=== PATIENT | male | born 1945 | race Caucasian/White ===

== ENCOUNTER 2017-12-10 06:24 | Inpatient (IN) | payer BC, MEDICARE ==
[2017-12-10] MEDS ORDERED: Nitroglycerin 2% Ointment 1 INCH/1 GM Packet ONE (06:37)
[2017-12-10] MEDS ORDERED: Famotidine 20 MG TAB ONE (06:44)
[2017-12-10] MEDS ORDERED: methylPREDNISolone Sod Succ/PF 125 MG/2 ML VIAL ONE (06:44)
[2017-12-10] MEDS ORDERED: diphenhydrAMINE 50 MG/ML VIAL ONE (06:44)
[2017-12-10] MEDS ORDERED: Water For Inject, Bacteriostat 30 ML ONE (06:44)
[2017-12-10 06:45] LABS: #Basophils 0.1 thou/uL (0.0-0.2); #Eosinphils 0.5 thou/uL (0.0-0.7); #Monocytes 0.8 thou/uL (0.11-0.59); #Neutrophils 3.5 thou/uL (1.40-6.50); %Basophils 1.2 % (0.0-1.0); %Eosinophils 7.1 % (0.0-10.0); %Lymphocytes 29.5 % (21.0-51.0); %Monocytes 11.2 % (0.0-10.0); %Neutrophils 51.1 % (42.0-75.0); Hemoglobin 15.7 g/dL (14.0-18.0); Mean Corpuscular Hemoglobin 32.8 pg (27.0-31.0); Mean Corpuscular Volume 96.5 fl (80.0-94.0); Mean Platelet Volume 7.8 fL (7.4-10.4); Platelet Count 166 thou/uL (130-400); RBC Distribution Width 11.8 % (11.5-14.5); Red Blood Cell (RBC) Count 4.78 mill/uL (4.70-6.10); White Blood Cell (WBC) Count 6.8 thou/uL (4.8-10.8)
[2017-12-10 06:58] LABS: INR-International Normal Ratio 1.1; PTT 34.5 SEC (22.9-36.1); Prothrombin Time 13.9 SEC (12.0-14.7)
[2017-12-10] MEDS ORDERED: Famotidine 40 MG/4 ML VIAL SLOW IVP SCH (07:00)
[2017-12-10 07:10] LABS: ALT (SGPT) 22 U/L (8-55); AST (SGOT) 18 U/L (5-34); Alkaline Phosphatase 114 U/L (40-150); Anion Gap 13 mmol/L (10-20); BUN (Urea Nitrogen) 13 mg/dL (8.4-25.7); Bilirubin, Total 0.5 mg/dL (0.2-1.2); Calc. Creatinine Clearance 0 mL/min (70-130); Calcium 9.6 mg/dL (7.8-10.44); Carbon Dioxide 29 mmol/L (23-31); Chloride 95 mmol/L (98-107); Estimated GFR-MDRD 86; Globulin 3.6 g/dL (2.4-3.5); Glucose 113 mg/dL (80-115); Protein, Total 7.6 g/dL (5.8-8.1); Sodium 133 mmol/L (136-145)
[2017-12-10 07:14] LABS: CKMB 1.2 ng/mL (0-6.6); Troponin I Less than 0.010 ng/mL (< 0.028)
[2017-12-10] MEDS ORDERED: Acetaminophen 325 MG TAB PO PRN (09:17)
[2017-12-10] MEDS ORDERED: Ondansetron HCl/PF 4 MG/2 ML Vial IVP PRN ×2 (09:17→11:06)
[2017-12-10] MEDS ORDERED: Ondansetron ODT 4 MG TAB SL PRN (09:17)
--- NOTE | 2017-12-10 09:17 | RAD ---
CHEST 1 VIEW: Date: 12/10/17 HISTORY: 72-year-old male with history of chest pain. COMPARISON: 09/21/16. FINDINGS: Postop midline sternotomy. Left ICD. Mild stable increased markings bilaterally and blunting of the c ostophrenic angles, worse on the left side. No confluent pneumonia, overt edema, or pleural effusion. IMPRESSION: Minimal stable bilateral chronic changes. No acute intrathoracic disease. POS: EHSANH
--- NOTE | 2017-12-10 09:29 | CON ---
DATE OF CONSULTATION: 12/10/2017 REASON FOR CONSULTATION: ST-elevation myocardial infarction. CONSULTING PROVIDER: Dr. Farley. HISTORY OF PRESENT ILLNESS: Mr. Redman is a 72-year-old gentleman, who is a patient of Dr. Iva aguilar. He was last seen by Dr. Iva Lanza in 2017. He presented with acute myocardial infarction. He underwent urgent coronary angiography and was found to have an occluded right coronary artery and occluded graft to the right coronary artery. Attempts at revascularization were performed and were unsuccessful. Mr. Redman states he presented with chest pain. It awoke him from sleep. He states it lasted 30 eugenia kwadwo. He is now chest pain free. He appears comfortable. His EKG is consistent with ST-segment elev ation with Q-waves suggesting infarct. PAST MEDICAL HISTORY: As above including TN x3. PAST SURGICAL HISTORY: CABG x4 in 2003, multiple sclerosis, hyperlipidemia, hypertension. ALLERGIES: IODINE. SOCIAL HISTORY: Rare tobacco use. REVIEW OF SYSTEMS: Ten-point review of systems was reviewed and as above, otherwise negative. PHYSICAL EXAMINATION: GENERAL: Patient is a pleasant male, who is in no acute distress. The patient appears his stated ag e. VITAL SIGNS: Blood pressure 130/90, pulse 95. NEUROLOGIC: The patient is alert and oriented times 3 with no focal neurologic deficits. HEENT: Sclerae without icterus. Mouth has moist mucous membranes with normal pallor. NECK: No JVD. Carotid upstroke brisk. No bruits bilaterally. LUNGS: Clear to auscultation with unlabored respirations. BACK: No scoliosis or kyphosis. CARDIAC: Regular rate and rhythm with normal S1 and S2. No S3 or S4 noted. No significant rubs, mu rmurs, thrills, or gallops noted throughout the precordium. PMI is not displaced. There is no tadeo ternal heave. ABDOMEN: Soft, nontender, nondistended. No peritoneal signs present. No hepatosplenomegaly. No ab normal striae. EXTREMITIES: 2+ femoral and 2+ dorsalis pedis pulses. No cyanosis, clubbing, or edema. SKIN: No gross abnormalities. PERTINENT LABORATORY DATA: Hemoglobin 15.7, troponin less than 0.017, CK-MB 1.2. EKG, normal sinus rhythm with ST-segment elevation, but cannot completely exclude inferior infarct, age old, with aneur ysm. ICD interrogation suggests ventricular fibrillation event x2 with appropriate cardioversion. IMPRESSION: Acute myocardial infarction - patient is currently pain free. He has a dye allergy. Hi s symptoms are likely related to ventricular fibrillation event. I do not feel this is a primary fro m a cardiac thrombosis. We will continue to trend his troponins. Given that he is pain free and pre vious history described above in addition iodine allergy, I do not feel compelled to proceed with urg ent coronary angiography. He may benefit from long-acting amiodarone or sotalol. We will defer to Nicolasa Lanza. I did spend 35 minutes at bedside in addition to discussing the case with Dr. Travis Farley and Dr. Jn Lanza.
[2017-12-10] MEDS ORDERED: Carvedilol 6.25 MG TAB PO SCH (10:00)
[2017-12-10] MEDS ORDERED: Magnesium 2 GM/NS 0.9% 100 ML 2 GM in Premix Bag 1 BAG IVPB SCH (10:00)
[2017-12-10 10:04] LABS: Troponin I 0.158 ng/mL (< 0.028)
[2017-12-10 10:10] VITALS: BMI 31.6
[2017-12-10] MEDS ORDERED: Clopidogrel Bisulfate 300 MG TAB PO SCH (10:15)
[2017-12-10] MEDS ORDERED: Enoxaparin Sodium 40 MG/0.4 ML SYRINGE SC SCH ×2 (10:15→12:00)
[2017-12-10] MEDS ORDERED: Enoxaparin Sodium 100 MG/ML SYRINGE SC SCH (10:15)
[2017-12-10] MEDS: Aspirin 325 mg Enteric Coated Tablet PO SCH (10:25)
[2017-12-10] MEDS ORDERED: hydrALAZINE 20 MG/ML VIAL SLOW IVP PRN (11:06)
[2017-12-10] MEDS ORDERED: Acetaminophen 500 MG TAB PO PRN (11:06)
[2017-12-10] MEDS ORDERED: Amiodarone In Dextrose 200 ML IVPB SCH (11:06)
[2017-12-10] MEDS ORDERED: Ondansetron ODT 4 MG TAB PO PRN (11:06)
[2017-12-10] MEDS ORDERED: cloNIDine 0.1 MG TAB PO PRN (11:06)
[2017-12-10] MEDS ORDERED: Amiodarone HCl 150 MG, Admixture Fee 1 EACH in Dextrose 5% in Water 100 ML IVPB SCH ×3 (11:30)
[2017-12-10 12:53] LABS: Bilirubin Negative (Negative); Blood, Urine Trace (Negative); Clarity CLOUDY (Clear); Glucose, Urine (Dipstick) Negative (Negative); Leukocyte Large (Negative); Nitrite Positive (Negative); Protein, Urine (Dipstick) Negative (Neg-Trace); Specific Gravity, Urine 1.014 (1.002-1.036); Urobilinogen 0.2 mg/dL (0.2-1.0)
[2017-12-10 12:56] LABS: Bacteria/HPF 4+ HPF (None Seen); Hyaline Casts/LPF 4-6 HYALINE CAST LPF (0-3 Hyaline); Pathc Cast-AUWi Flag 0.29 (0-2.49); RBC/HPF 0-3 HPF (0-3); Squamous Epithelial None Seen HPF (0-3)
[2017-12-10] MEDS: Amiodarone HCl 450 MG, Admixture Fee 1 EACH in Dextrose 5% in Water 250 ML IVPB SCH ×3 (13:05)
[2017-12-10] MEDS ORDERED: Communication Order-Pharmacy FS SCH (13:15)
[2017-12-10 13:26] LABS: Troponin I 0.899 ng/mL (< 0.028)
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
[2017-12-10] MEDS: Carvedilol 6.25 MG TAB PO SCH (17:39)
[2017-12-10] MEDS ORDERED: predniSONE 20 MG TAB PO SCH ×2 (18:00→23:55)
[2017-12-10] MEDS: Zolpidem Tartrate 5 MG TAB PO PRN ×3 (21:22→23:40)
[2017-12-10] MEDS: Famotidine 20 MG TAB PO SCH (23:47)
[2017-12-11] MEDS: Amiodarone HCl 450 MG, Admixture Fee 1 EACH in Dextrose 5% in Water 250 ML IVPB SCH ×3 (04:20)
[2017-12-11 05:03] LABS: Anion Gap 10 mmol/L (10-20); BUN (Urea Nitrogen) 12 mg/dL (8.4-25.7); Calc. Creatinine Clearance 128 mL/min (70-130); Calcium 9.4 mg/dL (7.8-10.44); Carbon Dioxide 29 mmol/L (23-31); Chloride 95 mmol/L (98-107); Estimated GFR-MDRD 89; Glucose 145 mg/dL (80-115); Magnesium 2.2 mg/dL (1.6-2.6); Potassium 4.6 mmol/L (3.5-5.1); Sodium 129 mmol/L (136-145)
[2017-12-11 05:21] LABS: Band 2 % (5-11); Hemoglobin 14.6 g/dL (14.0-18.0); Lymphocytes 13 % (21-51); MDiff Complete? YES; Mean Corpuscular HGB CONC 33.9 g/dL (32.0-36.0); Mean Corpuscular Hemoglobin 32.9 pg (27.0-31.0); Mean Platelet Volume 8.1 fL (7.4-10.4); Monocytes 6 % (0-10); Neutrophil 79 % (42-75); Platelet Count 183 thou/uL (130-400); RBC Distribution Width 11.6 % (11.5-14.5); Red Blood Cell (RBC) Count 4.45 mill/uL (4.70-6.10); White Blood Cell (WBC) Count 13.6 thou/uL (4.8-10.8)
[2017-12-11] MEDS: Aspirin 325 mg Enteric Coated Tablet PO SCH (05:58)
[2017-12-11] MEDS: Famotidine 20 MG TAB PO SCH ×2 (05:58→20:31)
[2017-12-11] MEDS: Clopidogrel Bisulfate 75 MG TAB PO SCH (05:58)
[2017-12-11] MEDS: Carvedilol 6.25 MG TAB PO SCH ×2 (05:58→17:47)
[2017-12-11] MEDS: Sodium Chloride 0.9% 1,000 ML IV SCH ×2 (05:59→15:40)
[2017-12-11] MEDS ORDERED: Diazepam 5 MG TAB PO SCH (06:00)
[2017-12-11] MEDS ORDERED: predniSONE 20 MG TAB PO SCH (06:00)
[2017-12-11] MEDS ORDERED: Lidocaine 1% (PF) 30 ML VIAL ONE (06:23)
[2017-12-11] MEDS ORDERED: Fentanyl 100 MCG/2 ML VIAL ONE (07:38)
[2017-12-11] MEDS ORDERED: Midazolam HCl 2 mg/2 ml Vial ONE (07:38)
[2017-12-11] MEDS ORDERED: diphenhydrAMINE 50 MG/ML VIAL ONE (08:17)
[2017-12-11] MEDS ORDERED: Acetaminophen/Codeine 30-300mg Tablet PO PRN ×2 (08:30)
[2017-12-11] MEDS ORDERED: Nitroglycerin 0.4 MG TAB (25 Tab Bottle) SL PRN (08:30)
[2017-12-11] MEDS ORDERED: Sodium Chloride 0.9% 200 ML IV SCH (08:30)
[2017-12-11] MEDS ORDERED: traMADol HCl 50 MG TAB PO PRN (08:30)
[2017-12-11] MEDS ORDERED: Iopamidol 370 76% 100 ML VIAL ONE (10:42)
--- NOTE | 2017-12-11 11:13 | PDOC.PN ---
- Subjective Encounter Start Date: 12/11/17 Encounter Start Time: 11:10 Subjective: f/u for V-tach, torsades s/p ICD discharge x 2. LHC performed showing multi -: vessel CAD with patent grafts, EF 25% and med mgmt recommended. -: Asking about rehab due to deconditioning and limited mobility. - Objective Resuscitation Status: Resuscitation Status FULL:Full Resuscitation MAR Reviewed: Yes Vital Signs & Weight: Vital Signs (12 hours) Temp Pulse Resp BP BP Pulse Ox 12/11/17 08:40 80 16 133/69 133/69 12/11/17 07:00 97.6 F 84 18 161/75 H 96 12/11/17 05:58 127/62 12/11/17 04:00 97.7 F 85 20 138/68 96 12/10/17 23:20 87 138/75 Weight Admit Weight 246 lb 9.6 oz Weight 246 lb I&O: 12/10/17 12/11/17 12/12/17 06:59 06:59 06:59 Intake Total 2258 Output Total 2475 Balance -217 Result Diagrams: 12/11/17 04:40 12/11/17 04:40 Additional Labs: Microbiology 12/10/17 12:37 Urine sanders catheter Urine Culture - Preliminary Gram Negative Juan Laboratory Tests 12/10/17 12/10/17 12/10/17 06:30 06:30 06:30 WBC 6.8 Sodium 133 L Magnesium Troponin I Less than 0.010 TSH 3rd Generation 12/10/17 12/10/17 12/10/17 06:30 09:24 12:39 WBC Sodium Magnesium 2.0 Troponin I 0.158 H 0.899 H* TSH 3rd Generation 12/11/17 12/11/17 04:40 04:40 WBC Sodium Magnesium 2.2 Troponin I TSH 3rd Generation 1.0925 Radiology Reviewed by me: Yes (LHC - diffuse dz with patent grafts, EF 25%) EKG Reviewed by me: Yes (Tele - A-sensed/V-paced in 80's) Phys Exam - Physical Examination Constitutional: NAD alert, responsive HEENT: PERRLA, moist MMs, sclera anicteric, oral pharynx no lesions Neck: no nodes, no JVD, supple Respiratory: no wheezing, no rales, no rhonchi, clear to auscultation bilateral Cardiovascular: RRR, no significant murmur, no rub, gallop Gastrointestinal: soft, non-tender, no distention, positive bowel sounds Musculoskeletal: no edema, pulses present Neurological: non-focal, normal sensation, moves all 4 limbs Psychiatric: normal affect, A&O x 3 Skin: no rash, normal turgor, cap refill <2 seconds Dx/Plan (1) Ventricular tachycardia Code(s): I47.2 - VENTRICULAR TACHYCARDIA Status: Acute Comment: s/p ICD discharge x 2 with normal functioning AICD, continue Amiodarone 400mg BID (2) Elevated troponin I level Code(s): R74.8 - ABNORMAL LEVELS OF OTHER SERUM ENZYMES Status: Acute Comment: Secondary to demand ischemia, diffuse CAD by [facility] with medical mgmt recommended (3) Demand ischemia of myocardium Code(s): I24.8 - OTHER FORMS OF ACUTE ISCHEMIC HEART DISEASE Status: Acute Comment: See above, continue ASA and Plavix (4) CAD (coronary artery disease) Code(s): I25.10 - ATHSCL HEART DISEASE OF [place] CORONARY ARTERY W/O ANG PCTRS Status: Chronic Comment: Maximize medical mgmt (5) Ischemic cardiomyopathy Code(s): I25.5 - ISCHEMIC CARDIOMYOPATHY Status: Chronic Comment: EF 25% by [facility], normal functioning AICD, medical mgmt, 2D echo pending (6) HTN (hypertension) Code(s): I10 - ESSENTIAL (PRIMARY) HYPERTENSION Status: Chronic Qualifiers: Hypertension type: essential hypertension Qualified Code(s): I10 - Essential (primary) hypertension Comment: continue Coreg 12.5mg BID, resume Losartan 25mg daily (7) Multiple sclerosis Code(s): G35 - MULTIPLE SCLEROSIS Status: Chronic Comment: Continue Nuvigil , consult PT/OT, Rehab screen today (8) Neurogenic bladder Code(s): N31.9 - NEUROMUSCULAR DYSFUNCTION OF BLADDER, UNSPECIFIED Status: Chronic Comment: Intermittent self-catheterizations after removal of Sanders catheter - Plan plan discussed w/ family, PT/OT, social media coordinator, out of bed/ambulate, DVT proph w/SCDs Stable overall -: PT/OT evaluation for functional assessment -: Rehab screen due to deconditioning in context of multiple sclerosis -: Continue Amiodarone, ASA and Plavix -: AM lab: Mg++ * .
[2017-12-11] MEDS: Amiodarone 200 MG TAB PO SCH ×2 (11:24→20:31)
[2017-12-11] MEDS ORDERED: Losartan 25 MG TAB PO SCH ×2 (21:00)
[2017-12-11] MEDS: Zolpidem Tartrate 5 MG TAB PO PRN (22:18)
[2017-12-12] MEDS ORDERED: Losartan 25 MG TAB PO SCH ×2 (09:19)
[2017-12-12] MEDS: Famotidine 20 MG TAB PO SCH (09:30)
[2017-12-12] MEDS: Clopidogrel Bisulfate 75 MG TAB PO SCH (09:30)
[2017-12-12] MEDS: Carvedilol 6.25 MG TAB PO SCH (09:30)
[2017-12-12] MEDS ORDERED: Amiodarone 200 MG TAB PO SCH ×3 (09:45→21:00)
--- NOTE | 2017-12-12 10:59 | PRG ---
DATE OF SERVICE: 12/12/2017 SUBJECTIVE: Mr. Redman is doing well today. He is having no further dysrhythmia. He feels well, no chest pain or pressure. PHYSICAL EXAMINATION: VITAL SIGNS: His blood pressure is 156/78, pulse 80 its regular. LUNGS: Clear. CARDIAC: Normal S1, S2. ABDOMEN: Soft and nontender. EXTREMITIES: There is no edema. ASSESSMENT: 1. Status post episodes of ventricular fibrillation successfully defibrillated. 2. Non-ST elevation infarction related to saphenous vein graft to the right coronary artery, which i s not a candidate for intervention. 3. Hyponatremia. PLAN: 1. The losartan was increased about to 50 mg a day from 25, carvedilol 12.5 mg twice daily, Plavix 7 5 mg a day, Eliquis 5 mg twice a day for paroxysmal atrial fibrillation. 2. I asked him to come back and see us in the office in about 3 weeks. Transportation is a major pr oblem for this patient. 4. Amiodarone 200 mg twice a day for 2 weeks, then 200 mg once a day. 5. Eventually may resume diuretic in the form of furosemide, consider 20 mg 3 days a week. Sodium i s 129 on this admission.
[2017-12-12 12:09] VITALS: TEMP 97.5
[2017-12-12] MEDS: Aspirin 325 mg Enteric Coated Tablet PO SCH (12:40)
[2017-12-12] MEDS: Amiodarone 200 MG TAB PO SCH (12:40)
--- NOTE | 2017-12-12 13:55 | PQF ---
CLINICAL DOCUMENTATION IMPROVEMENT CLARIFICATION FORM: ICD-10 Updated PLEASE DO AN ADDENDUM TO THE PROGRESS NOTE WITH ANY DOCUMENTATION UPDATES OR ADDITIONS AND CARRY THROUGH TO DC SUMMARY. THANK YOU. DATE: 12/12/17 ATTN: Dr. Lehman Please exercise your independent, professional judgment in responding to the clarification form. Clinical indicators are provided on the bottom of this form for your review Please check appropriate box(s): AMI TYPE: [ x ] NSTEMI [ ] AMI Type 2 [ ] Demand ischemia of myocardium [ ] Other diagnosis [ ] Unable to determine In addition, please specify: Present on Admission (POA): [ x ] Yes [ ] No [ ] Unable to determine CLINICAL INDICATORS - SIGNS / SYMPTOMS / LABS TROPONIN I 12/10: 0.158, 0.899 PN 12/11: VENTRICULAR TACHYCARDIA DEMAND ISCHEMIA OF MYOCARIUM CARDIOLOGY PN 12/12: S/P EPISODES OF VENTRICULAR FIBRILLATION SUCCESSFULLY DEFIBRILLATED. NON-ST ELEVATION INFARCTION R/T SAPHENOUS VEIN GRAFT TO RCA, WHICH IS NOT A CANDIDATE FOR INTERVENTION. RISKS: H&P: HX OF INFERIOR ME 2/2 SV GRAFT OCCLUSION. HX OF BRADYCARDIA, REQUIRING PM INSERTION. CAD IN MULTIPLE VESSELS W/ DIFFUSE INVOLVEMENT. MS. HTN, TREATMENT: 12/11: LHC W/ GRAFTS, LV CPOE 12/10: PLAVIX 75 MG PO DAILY CPOE 12/12: ELIQUIS 5 MG PO BID Thank you, Ana Lilia (This form is maintained as a part of the permanent medical record) 2015 [employer]. All Rights Reserved Ana Lilia Gillis RN, BSN [email or web address] Office: [phone] [facility]
[2017-12-12 17:56] VITALS: BP 156/82
--- NOTE | 2017-12-13 01:02 | DIS ---
DATE OF ADMISSION: 12/10/2017 DATE OF DISCHARGE: 12/12/2017 DISCHARGE DIAGNOSES: 1. Ventricular tachycardia, status post ICD discharge x2. 2. Non-ST elevation myocardial infarction, medical management. 3. Coronary artery disease, chronic and stable. 4. Ischemic cardiomyopathy with ejection fraction of 25%. 5. Hypertension, labile. 6. Multiple sclerosis, medical management. 7. Neurogenic bladder with intermittent self-bladder catheterizations. 8. Urinary tract infection with Klebsiella and E. coli species. CONSULTATIONS: Dr. Lanza and Dr. Tapia with Cardiology Service. PERTINENT LABORATORY DATA AND X-RAY FINDINGS: Sodium ranged between 129-133. Magnesium ranged betwe en 2.0-2.3. LFTs within normal limits. Troponin I ranged between 0.010-0.90. TSH 1.09. CBC showed a white blood cell count ranging between 6.8-13.6. Urine culture dated 12/10/2017 showed greater th an 100,000 colonies of E. coli and Klebsiella species. Portable chest x-ray dated 12/10/2017 showed stable chronic changes without acute process. Left heart catheterization dated 12/11/2017 showed mul tivessel coronary artery disease with patent SEARS to mid LAD, patent saphenous vein graft to distal L AD, patent radial to high diagonal. RCA 100% occlusion with patent saphenous vein graft with diffuse thrombus. Ejection fraction estimated 25%. A 2D transthoracic echocardiogram dated 12/11/2017 show ed ejection fraction of 25%-30%. Diastolic dysfunction noted. Left atrial enlargement. Mild-to-mod erate tricuspid regurgitation. HOSPITAL COURSE: Patient was initially admitted after presenting with left arm, jaw, and chest pain in the context of known multivessel coronary artery disease. Patient was noted with ventricular tach ycardia/ventricular fibrillation/torsades nonsustained. Patient with current ICD implant undergoing discharges x2 prior to admission. Patient was initially placed on amiodarone infusion and received m agnesium sulfate IV x1 dose. Patient was evaluated by the Cardiology service undergoing left heart c atheterization showing patent grafts as noted previously with multi-vessel coronary disease. No spec ific intervention was recommended and medical management was instituted. Patient was initiated on am iodarone 200 mg b.i.d. Patient did receive Lovenox 100 mg subcutaneously after evidence of non-ST el evation myocardial infarction with elevated troponin I stated previously. Patient was also titrated on current regimen of losartan and increased on Coreg to 12.5 mg b.i.d. Telemetry monitoring showed no recurrence of ventricular tachycardia or torsades after initial management. Patient was also note d with likely urinary tract infection after urine culture showed E. coli and Klebsiella species in th e context of neurogenic bladder and intermittent bladder self-catheterizations. Patient initiated on Levaquin 500 mg daily to complete a 5-day course after discharge. Patient was also recommended to jennifer nieto outpatient physical therapy through home health services on discharge. Overall, patient did remain clinically stable, tolerating regular oral intake with current telemetry monitoring showing at rial paced V-sensed rhythm in the 80s. I have examined the patient at the time of discharge and disc ussed pertinent laboratory, x-ray, and cardiac studies as well as recommendations for outpatient foll owup. Patient verbalizes understanding and agreement and will discharge home on 12/12/2017. DISCHARGE MEDICATIONS: 1. Amiodarone 200 mg 1 tab p.o. b.i.d. x2 weeks followed by 200 mg p.o. daily. 2. Losartan 50 mg p.o. at bedtime. 3. Coreg 12.5 mg p.o. b.i.d. 4. Xanax 0.25 mg p.o. q.i.d. p.r.n. 5. Eliquis 5 mg p.o. b.i.d. 6. Nuvigil 150 mg p.o. daily. 7. Lipitor 20 mg p.o. at bedtime. 8. Vitamin B complex 1 capsule p.o. daily. 9. Calcium with vitamin D3 two tablets p.o. at bedtime. 10. Plavix 75 mg p.o. b.i.d. 11. Proscar 5 mg p.o. at bedtime. 12. Gabapentin 600 mg p.o. at bedtime. 13. Hydrochlorothiazide 25 mg p.o. daily. 14. Levaquin 500 mg p.o. daily x5 days. 15. Levothyroxine 25 mcg 1 tab p.o. daily. 16. Melatonin 10 mg p.o. at bedtime. 17. Multivitamin 1 tab p.o. daily. 18. Slow-K 8 mEq p.o. daily. 19. Flomax 0.4 mg p.o. at bedtime. 20. Ambien 2.25 mg p.o. at bedtime. FOLLOWUP: Patient to follow up with Dr. Zeyad Garvin at [facility] within 7 d ays of discharge. Patient will follow up with Dr. Lanza and to call his office for appointment time and date. CONDITION ON DISCHARGE: Stable. ACTIVITY: Ad-magaly. DIET: Heart healthy. SPECIAL INSTRUCTIONS: Patient will receive home health services through [facility] skilled care and physical therapy. CODE STATUS: FULL. DISPOSITION: Home, [facility] on 12/12/2017. Total time preparing and coordinating discharge 37 minutes.
[2017-12-14] MEDS ORDERED: Apixaban 5 MG TAB PO SCH (09:00)
== END 2017-12-12 17:56 | disposition home health service (06) | DRG 280 ==
LOC: ERS 06:24 → 2NO 08:23
PROVIDERS: ADMIT Family Medicine; ATTEND Family Medicine
PROC: 4A023N7 Measurement of Cardiac Sampling and Pressure, Left Heart, Percutaneous Approach (ICD-10-PCS; principal; 2017-12-11)
PROC: B2111ZZ Fluoroscopy of Multiple Coronary Arteries using Low Osmolar Contrast (ICD-10-PCS; 2017-12-11)
PROC: B2131ZZ Fluoroscopy of Multiple Coronary Artery Bypass Grafts using Low Osmolar Contrast (ICD-10-PCS; 2017-12-11)
PROC: B2181ZZ Fluoroscopy of Left Internal Mammary Bypass Graft using Low Osmolar Contrast (ICD-10-PCS; 2017-12-11)
PROC: B2151ZZ Fluoroscopy of Left Heart using Low Osmolar Contrast (ICD-10-PCS; 2017-12-11)
DX: I21.4 Non-ST elevation (NSTEMI) myocardial infarction (principal); I49.01 Ventricular fibrillation; E87.1 Hypo-osmolality and hyponatremia; I47.2 Ventricular tachycardia; N39.0 Urinary tract infection, site not specified; T83.518A Infection and inflammatory reaction due to other urinary catheter, initial encounter; I25.810 Atherosclerosis of coronary artery bypass graft(s) without angina pectoris; G35 Multiple sclerosis; Z95.810 Presence of automatic (implantable) cardiac defibrillator; Z91.138 Patient's unintentional underdosing of medication regimen for other reason; T45.516A Underdosing of anticoagulants, initial encounter; Z79.02 Long term (current) use of antithrombotics/antiplatelets; I25.10 Atherosclerotic heart disease of native coronary artery without angina pectoris; I25.5 Ischemic cardiomyopathy; N31.9 Neuromuscular dysfunction of bladder, unspecified; B96.20 Unspecified Escherichia coli [E. coli] as the cause of diseases classified elsewhere; B96.1 Klebsiella pneumoniae [K. pneumoniae] as the cause of diseases classified elsewhere; Z91.041 Radiographic dye allergy status; E78.5 Hyperlipidemia, unspecified; I25.82 Chronic total occlusion of coronary artery; I25.2 Old myocardial infarction; I10 Essential (primary) hypertension
CPT/HCPCS: 36415; 71045; 76942; 80048; 80053; 81003; 81015; 82553; 83735; 84443; 84484; 85007; 85025; 85027; 85610; 85730; 87077; 87086; 87186; 93005; 93306; 93459; 94760; 96365; 96366; 96375; 99152; 99153; 99292; A4216; C1769; G8978-GP-CL; G8979-GP-CI; G8987-GO-CK; G8988-GO-CJ; J0282; J1200; J1644; J1650; J2001; J2250; J2930; J3010; J3475; J7070; J7506

== ENCOUNTER 2018-04-18 09:32 | Emergency (ER) | payer BC, MEDICARE ==
[2018-04-18 10:59] LABS: ALT (SGPT) 18 U/L (8-55); AST (SGOT) 18 U/L (5-34); Albumin 3.5 g/dL (3.4-4.8); Alkaline Phosphatase 102 U/L (40-150); Anion Gap 12 mmol/L (10-20); BUN (Urea Nitrogen) 12 mg/dL (8.4-25.7); Bilirubin, Total 0.6 mg/dL (0.2-1.2); CK (CPK) 31 U/L (30-200); Calc. Creatinine Clearance 0 mL/min (70-130); Carbon Dioxide 27 mmol/L (23-31); Chloride 98 mmol/L (98-107); Estimated GFR-MDRD 73; Globulin 3.6 g/dL (2.4-3.5); Glucose 117 mg/dL (80-115); Potassium 4.2 mmol/L (3.5-5.1); Protein, Total 7.1 g/dL (5.8-8.1); Sodium 133 mmol/L (136-145)
[2018-04-18 11:01] LABS: Hemoglobin 15.4 g/dL (14.0-18.0); Mean Corpuscular Hemoglobin 31.9 pg (27.0-31.0); Mean Corpuscular Volume 96.6 fL (78.0-98.0); Mean Platelet Volume 7.6 fL (7.4-10.4); Platelet Count 193 thou/uL (130-400); RBC Distribution Width 12.2 % (11.5-14.5); Red Blood Cell (RBC) Count 4.84 mill/uL (4.70-6.10); White Blood Cell (WBC) Count 8.9 thou/uL (4.8-10.8)
[2018-04-18 11:14] LABS: CKMB 0.6 ng/mL (0-6.6); Troponin I Less than 0.010 ng/mL (< 0.028)
[2018-04-18 11:19] LABS: Band 5 % (5-11); Eosinophils 10 % (0-10); Lymphocytes 20 % (21-51); MDiff Complete? YES; Monocytes 5 % (0-10); Neutrophil 59 % (42-75); RBC Morphology Normal; Reactive Lymphocytes 1 % (0-10)
[2018-04-18] MEDS ORDERED: Nystatin Cream 30 GM TUBE TOP SCH (12:00)
[2018-04-18 12:01] LABS: Bilirubin Negative (Negative); Blood, Urine Trace (Negative); Clarity CLEAR (Clear); Glucose, Urine (Dipstick) Negative (Negative); Leukocyte Trace (Negative); Nitrite Positive (Negative); Protein, Urine (Dipstick) Negative (Neg-Trace); Specific Gravity, Urine 1.009 (1.002-1.036); Urobilinogen 0.2 mg/dL (0.2-1.0)
[2018-04-18 12:05] LABS: Bacteria/HPF 2+ HPF (None Seen); Hyaline Casts/LPF 0-3 HYALINE CAST LPF (0-3 Hyaline); Pathc Cast-AUWi Flag 0.29 (0-2.49); RBC/HPF 0-3 HPF (0-3); Squamous Epithelial 0-3 HPF (0-3); WBC/HPF 0-3 HPF (0-3)
== END 2018-04-18 15:11 | disposition home or self-care (01) ==
LOC: ERS 09:32
DX: L03.312 Cellulitis of back [any part except buttock and flank] (principal); I25.2 Old myocardial infarction; I10 Essential (primary) hypertension; Z79.899 Other long term (current) drug therapy; Z79.891 Long term (current) use of opiate analgesic
CPT/HCPCS: 36415; 51701; 80053; 81003; 81015; 82550; 82553; 83605; 84484; 85025; 87040; 87077; 87086; 87186; 93005

== ENCOUNTER 2018-09-12 09:27 | Emergency (ER) | payer BC, MEDICARE ==
[2018-09-12] MEDS ORDERED: Albuterol Sulfate 2.5 mg/0.5 ml Neb ONE ×2 (09:51)
[2018-09-12 10:03] LABS: #Basophils 0.1 thou/uL (0.0-0.2); #Eosinphils 0.4 thou/uL (0.0-0.7); #Lymphocytes 1.4 thou/uL (1.20-3.40); #Monocytes 0.8 thou/uL (0.11-0.59); #Neutrophils 3.5 thou/uL (1.40-6.50); %Basophils 0.9 % (0.0-1.0); %Lymphocytes 22.5 % (21.0-51.0); %Monocytes 13.2 % (0.0-10.0); %Neutrophils 56.4 % (42.0-75.0); Mean Corpuscular HGB CONC 32.5 g/dL (32.0-36.0); Mean Corpuscular Volume 98.6 fL (78.0-98.0); Mean Platelet Volume 9.1 fL (7.4-10.4); Platelet Count 172 thou/uL (130-400); RBC Distribution Width 12.2 % (11.5-14.5); White Blood Cell (WBC) Count 6.2 thou/uL (4.8-10.8)
[2018-09-12 10:25] LABS: ALT (SGPT) 47 U/L (8-55); AST (SGOT) 40 U/L (5-34); Albumin 3.9 g/dL (3.4-4.8); Alkaline Phosphatase 98 U/L (40-150); Anion Gap 14 mmol/L (10-20); BUN (Urea Nitrogen) 9 mg/dL (8.4-25.7); Bilirubin, Total 0.6 mg/dL (0.2-1.2); Calc. Creatinine Clearance 0 mL/min (70-130); Calcium 9.2 mg/dL (7.8-10.44); Carbon Dioxide 26 mmol/L (23-31); Chloride 94 mmol/L (98-107); Estimated GFR-MDRD 83; Globulin 3.7 g/dL (2.4-3.5); Glucose 119 mg/dL (83-110); Potassium 4.7 mmol/L (3.5-5.1); Protein, Total 7.6 g/dL (5.8-8.1); Sodium 129 mmol/L (136-145)
--- NOTE | 2018-09-12 10:38 | RAD ---
CHEST 1 VIEW: Date: 09/12/18 HISTORY: Dyspnea. Shortness of breath which started yesterday morning. Dizziness. Coughing. COMPARISON: 12/10/17. FINDINGS: Postop midline sternotomy and left ICD. Minimal stable increased pleural and parenchymal opacity jansen ges in the left base with blunting of the left costophrenic angle. Mild biapical pleural thickening. No confluent pneumonia, overt edema, or pleural effusion. IMPRESSION: No acute intrathoracic disease. Stable from prior study. No overt pneumonia or edema. POS: TPC
== END 2018-09-12 12:05 | disposition home or self-care (01) ==
LOC: ERS 09:27
DX: J45.909 Unspecified asthma, uncomplicated (principal); E87.1 Hypo-osmolality and hyponatremia; I25.2 Old myocardial infarction; I10 Essential (primary) hypertension; Z79.899 Other long term (current) drug therapy
CPT/HCPCS: 71045; 80053; 84484; 85025; 87804; 93005; 94640; J7611

== ENCOUNTER 2019-08-15 07:32 | Inpatient (IN) | payer BC, MEDICARE ==
--- NOTE | 2019-08-15 08:08 | RAD ---
EXAM: XR Chest 1 View Portable PROVIDED CLINICAL HISTORY: Dyspnea COMPARISON: 09/12/2018 FINDINGS: Cardiac and mediastinal silhouettes is unchanged in appearance. Left subclavian cardiac pacing device and median sternotomy changes are again seen. Stable blunting of the left costophrenic angle. Patchy right lower lung zone airspace disease. No evidence for pneumothorax. IMPRESSION: Patchy right lower lung zone airspace disease may reflect pneumonia in the appropriate clinical augustine xt. Follow-up is recommended.
[2019-08-15] MEDS ORDERED: Cefepime 2 GM VIAL ONE (08:13)
[2019-08-15 08:17] LABS: #Eosinphils 0.2 thou/uL (0.0-0.7); #Monocytes 0.7 thou/uL (0.11-0.59); #Neutrophils 4.3 thou/uL (1.40-6.50); %Basophils 0.8 % (0.0-1.0); %Lymphocytes 16.1 % (21.0-51.0); %Monocytes 11.1 % (0.0-10.0); Hemoglobin 14.7 g/dL (14.0-18.0); Mean Corpuscular HGB CONC 33.4 g/dL (32.0-36.0); Mean Corpuscular Hemoglobin 33.1 pg (27.0-31.0); Mean Corpuscular Volume 98.9 fL (78.0-98.0); Mean Platelet Volume 8.8 fL (7.4-10.4); Platelet Count 120 thou/uL (130-400); Red Blood Cell (RBC) Count 4.44 mill/uL (4.70-6.10); White Blood Cell (WBC) Count 6.2 thou/uL (4.8-10.8)
[2019-08-15 08:36] LABS: ALT (SGPT) 20 U/L (8-55); AST (SGOT) 21 U/L (5-34); Albumin 3.7 g/dL (3.4-4.8); Alkaline Phosphatase 105 U/L (40-110); Anion Gap 16 mmol/L (10-20); BUN (Urea Nitrogen) 6 mg/dL (8.4-25.7); Bilirubin, Total 0.9 mg/dL (0.2-1.2); Calc. Creatinine Clearance 0 mL/min (70-130); Calcium 8.9 mg/dL (7.8-10.44); Carbon Dioxide 22 mmol/L (23-31); Chloride 92 mmol/L (98-107); Estimated GFR-MDRD Greater than 90; Globulin 3.3 g/dL (2.4-3.5); Glucose 109 mg/dL (83-110); Potassium 4.5 mmol/L (3.5-5.1); Sodium 125 mmol/L (136-145)
[2019-08-15] MEDS ORDERED: Metoclopramide HCl 10 MG/2 ML VIAL ONE (09:02)
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
[2019-08-15] MEDS ORDERED: hydrALAZINE 20 MG/ML VIAL SLOW IVP PRN (10:49)
[2019-08-15] MEDS ORDERED: Bisacodyl 10 MG SUPP PR PRN (10:49)
[2019-08-15] MEDS ORDERED: Loperamide HCl 2 MG CAP PO PRN (10:49)
[2019-08-15] MEDS ORDERED: Loratadine 10 MG TAB PO PRN (10:49)
[2019-08-15] MEDS ORDERED: Zolpidem Tartrate 5 MG TAB PO PRN (10:49)
[2019-08-15] MEDS ORDERED: HYDROcodone/Acetaminophen 5/325 mg Tablet PO PRN (10:49)
[2019-08-15] MEDS ORDERED: Cepastat Lozenges 1 LOZ PO PRN (10:49)
[2019-08-15] MEDS ORDERED: Diabetic Tussin 200 MG/10 ML UDCUP PO PRN (10:49)
[2019-08-15] MEDS ORDERED: Sodium Chloride 0.65% Nasal 44 ML BOT EA NARE PRN (10:49)
[2019-08-15] MEDS ORDERED: Artificial Tears 18 DROP/0.9 ML EA EYE PRN (10:49)
[2019-08-15] MEDS ORDERED: Acetaminophen 325 MG TAB PO PRN (10:49)
[2019-08-15] MEDS ORDERED: Senokot S 8.6-50 MG TAB PO PRN (10:49)
[2019-08-15] MEDS: Metoclopramide HCl 10 MG/2 ML VIAL IVP PRN ×2 (12:01→17:56)
[2019-08-15 12:18] VITALS: BMI 32.1
[2019-08-15] MEDS: Calcium Carbonate 500 MG ChewTAB PO PRN (15:27)
[2019-08-15 16:50] LABS: Bacteria/HPF None Seen HPF (None Seen); Bilirubin Negative (Negative); Blood, Urine 3+ (Negative); Clarity Turbid (Clear); Glucose, Urine (Dipstick) Normal (Negative); Leukocyte Negative Leu/uL (Negative); Nitrite Negative (Negative); Protein, Urine (Dipstick) 50 mg/dL (Neg-Trace); RBC/HPF Greater than 50 HPF (0-3); Squamous Epithelial 0-3 HPF (0-3)
[2019-08-15] MEDS: Cefepime 2 GM in Sodium Chloride 0.9% 100 ML IVPB SCH (21:01)
[2019-08-15] MEDS: Famotidine 20 MG TAB PO SCH (21:01)
[2019-08-15] MEDS: Zolpidem Tartrate 5 MG TAB PO PRN (21:02)
[2019-08-16 06:48] LABS: Anion Gap 14 mmol/L (10-20); BUN (Urea Nitrogen) 7 mg/dL (8.4-25.7); Calc. Creatinine Clearance 136 mL/min (70-130); Calcium 8.8 mg/dL (7.8-10.44); Carbon Dioxide 26 mmol/L (23-31); Chloride 90 mmol/L (98-107); Estimated GFR-MDRD Greater than 90; Glucose 105 mg/dL (83-110); Potassium 4.5 mmol/L (3.5-5.1); Sodium 125 mmol/L (136-145)
[2019-08-16 07:37] LABS: Band 7 % (5-11); Eosinophils 1 % (0-10); Hemoglobin 14.2 g/dL (14.0-18.0); Lymphocytes 17 % (21-51); MDiff Complete? YES; Mean Corpuscular HGB CONC 34.2 g/dL (32.0-36.0); Mean Corpuscular Hemoglobin 33.6 pg (27.0-31.0); Mean Corpuscular Volume 98.3 fL (78.0-98.0); Monocytes 17 % (0-10); Neutrophil 58 % (42-75); Platelet Count 131 thou/uL (130-400); RBC Distribution Width 11.7 % (11.5-14.5); Red Blood Cell (RBC) Count 4.22 mill/uL (4.70-6.10); White Blood Cell (WBC) Count 8.2 thou/uL (4.8-10.8)
[2019-08-16] MEDS: Cefepime 2 GM in Sodium Chloride 0.9% 100 ML IVPB SCH ×2 (07:54→20:01)
[2019-08-16] MEDS: Famotidine 20 MG TAB PO SCH ×2 (07:55→20:03)
[2019-08-16] MEDS ORDERED: Prevnar 13-Val Conj/PF 0.5 ML SYRINGE IM ONE (09:00)
[2019-08-16] MEDS: Calcium Carbonate 500 MG ChewTAB PO PRN ×2 (10:03→17:56)
--- NOTE | 2019-08-16 10:39 | PDOC.HOSPP ---
- Subjective Encounter Date: 08/16/19 Encounter Time: 09:30 Subjective: Patient seen and examined. No new complaints. No overnight events - Objective Vital Signs & Weight: Vital Signs (12 hours) Temp Pulse Resp BP Pulse Ox 08/16/19 08:00 98.0 F 92 20 134/81 92 L 08/16/19 04:00 98.1 F 95 18 115/55 L 95 08/16/19 00:00 97.9 F 93 18 150/79 H 95 Weight Weight 250 lb 8 oz I&O: 08/15/19 08/16/19 08/17/19 06:59 06:59 06:59 Intake Total 680 Output Total 1800 Balance -1120 Result Diagrams: 08/16/19 06:07 08/16/19 06:07 Hospitalist ROS - Review of Systems Constitutional: reports: weakness. denies: fever, chills, sweats, malaise, other Eyes: denies: pain, vision change, conjunctivae inflammation, eyelid inflammation, redness, other ENT: denies: ear pain, ear discharge, nose pain, nose discharge, nose congestion , mouth pain, mouth swelling, throat pain, throat swelling, other Respiratory: reports: cough, shortness of breath. denies: dry, hemoptysis, SOB with excertion, pleuritic pain, sputum, wheezing, other Cardiovascular: denies: chest pain, palpitations, orthopnea, paroxysmal noc. dyspnea, edema, light headedness, other Gastrointestinal: denies: nausea, vomiting, abdominal pain, diarrhea, constipation, melena, hematochezia, other Genitourinary: denies: dysuria, frequency, incontinence, hematuria, retention, other Musculoskeletal: denies: neck pain, shoulder pain, arm pain, back pain, hand pain, leg pain, foot pain, other - Medication Medications: Active Medications Generic Name Dose Route Start Last Admin Trade Name Freq PRN Reason Stop Dose Admin Bisacodyl 10 mg 08/15/19 10:49 08/15/19 15:28 Dulcolax [place] 10 mg DAILYPRN PRN Administration Constipation Calcium Carbonate 1,000 mg 08/15/19 10:49 08/16/19 10:03 Tums PO 1,000 mg Q4H PRN Administration Heartburn or Indigestion Famotidine 20 mg 08/15/19 21:00 08/16/19 07:55 Pepcid PO 20 mg BID HAM Administration Cefepime HCl 2 gm/ Sodium 100 mls @ 200 mls/hr 08/15/19 20:00 08/16/19 07:54 Chloride IVPB 100 mls 0800,2000 HAM Administration Levofloxacin 750 mg/ Device 150 mls @ 100 mls/hr 08/16/19 09:00 08/16/19 08: 04 IVPB 150 mls DAILY HAM Administration Metoclopramide HCl 10 mg 08/15/19 10:49 08/15/19 17:56 Reglan IVP 10 mg Q6H PRN Administration Nausea/Vomiting Zolpidem Tartrate 10 mg 08/15/19 13:00 08/15/19 21:02 Ambien PO 10 mg HSPRN PRN Administration Insomnia - Exam General Appearance: NAD, awake alert Eye: PERRL, anicteric sclera ENT: normocephalic atraumatic, no oropharyngeal lesions Neck: supple, symmetric, no JVD Heart: RRR, no murmur, no gallops, no rubs Respiratory: CTAB, no wheezes, no rales Gastrointestinal: soft, non-tender, non-distended Extremities: no cyanosis, no clubbing Skin: normal turgor, no lesions Neurological: no focal deficits Musculoskeletal: normal tone, normal strength Psychiatric: normal affect, normal behavior Hosp A/P (1) Community acquired bacterial pneumonia Code(s): J15.9 - UNSPECIFIED BACTERIAL PNEUMONIA Status: Acute (2) Obesity (BMI 30.0-34.9) Code(s): E66.9 - OBESITY, UNSPECIFIED Status: Chronic (3) CAD (coronary artery disease) Code(s): I25.10 - ATHSCL HEART DISEASE OF [place] CORONARY ARTERY W/O ANG PCTRS Status: Chronic (4) HTN (hypertension) Code(s): I10 - ESSENTIAL (PRIMARY) HYPERTENSION Status: Chronic Qualifiers: (5) Ischemic cardiomyopathy Code(s): I25.5 - ISCHEMIC CARDIOMYOPATHY Status: Chronic (6) Multiple sclerosis Code(s): G35 - MULTIPLE SCLEROSIS Status: Chronic (7) Neurogenic bladder Code(s): N31.9 - NEUROMUSCULAR DYSFUNCTION OF BLADDER, UNSPECIFIED Status: Chronic (8) Hyponatremia Code(s): E87.1 - HYPO-OSMOLALITY AND HYPONATREMIA Status: Acute (9) NSVT (nonsustained ventricular tachycardia) Code(s): I47.2 - VENTRICULAR TACHYCARDIA Status: Chronic (10) PAF (paroxysmal atrial fibrillation) Code(s): I48.0 - PAROXYSMAL ATRIAL FIBRILLATION Status: Chronic (11) Chronic anticoagulation Code(s): Z79.01 - ASSISTED (CURRENT) USE OF ANTICOAGULANTS Status: Chronic (12) Chronic systolic CHF (congestive heart failure) Code(s): I50.22 - CHRONIC SYSTOLIC (CONGESTIVE) HEART FAILURE Status: Chronic - Plan old records reviewed/req, continue antibiotics 08/16/19- continue iv antibiotics for now, medication reviewed and continue to provide symptomatic treatment, medication reconciled
[2019-08-16] MEDS ORDERED: PROVENTIL INHALER 6.7 G (200 INHALATIONS) INH PRN (10:40)
[2019-08-16] MEDS: Carvedilol 6.25 MG TAB PO SCH (17:35)
[2019-08-16] MEDS: Metoclopramide HCl 10 MG/2 ML VIAL IVP PRN (17:38)
[2019-08-16] MEDS ORDERED: Melatonin 3 MG TAB PO PRN (19:29)
[2019-08-16] MEDS: Amiodarone 200 MG TAB PO SCH (20:03)
[2019-08-16] MEDS: Apixaban 5 MG TAB PO SCH (20:03)
[2019-08-16] MEDS: Atorvastatin Calcium 20 MG TAB PO SCH (20:03)
[2019-08-16] MEDS: Finasteride 5 MG TAB PO SCH (20:04)
[2019-08-16] MEDS: Zolpidem Tartrate 5 MG TAB PO PRN (20:04)
[2019-08-16] MEDS: Tamsulosin HCl 0.4 MG CAP PO SCH (20:04)
[2019-08-16] MEDS: Gabapentin 300 MG CAP PO SCH (20:04)
[2019-08-16] MEDS ORDERED: Melatonin 3 MG TAB PO SCH (21:00)
[2019-08-17] MEDS ORDERED: guaiFENesin ER 600 MG TAB PO SCH (00:30)
[2019-08-17] MEDS: Levothyroxine Sodium 25 MCG TAB PO SCH (05:16)
[2019-08-17] MEDS: guaiFENesin ER 600 MG TAB PO SCH ×2 (08:33→20:41)
[2019-08-17] MEDS: Apixaban 5 MG TAB PO SCH ×2 (08:33→20:40)
[2019-08-17] MEDS: Famotidine 20 MG TAB PO SCH ×2 (08:33→20:40)
[2019-08-17] MEDS: Clopidogrel Bisulfate 75 MG TAB PO SCH (08:33)
[2019-08-17] MEDS: Cefepime 2 GM in Sodium Chloride 0.9% 100 ML IVPB SCH ×2 (08:33→20:43)
[2019-08-17] MEDS: Carvedilol 6.25 MG TAB PO SCH ×2 (08:33→16:48)
[2019-08-17] MEDS: Amiodarone 200 MG TAB PO SCH ×2 (08:33→20:41)
[2019-08-17] MEDS: Potassium Chloride 8 MEQ TAB PO SCH (08:57)
[2019-08-17] MEDS ORDERED: Furosemide 20 MG TAB PO SCH (09:00)
--- NOTE | 2019-08-17 11:46 | PDOC.HOSPP ---
- Subjective Encounter Date: 08/17/19 Encounter Time: 09:00 Subjective: Patient seen and examined. No new complaints. No overnight events - Objective Vital Signs & Weight: Vital Signs (12 hours) Temp Pulse Resp BP BP Pulse Ox 08/17/19 08:33 121/73 08/17/19 08:00 96 08/17/19 07:39 97.6 F 88 20 121/73 96 08/17/19 04:33 97.6 F 89 20 114/71 92 L 08/17/19 00:34 97.8 F 96 20 130/70 94 L Weight Weight 250 lb 8 oz I&O: 08/16/19 08/17/19 08/18/19 06:59 06:59 06:59 Intake Total 680 1010 Output Total 1800 950 Balance -1120 60 Result Diagrams: 08/16/19 06:07 08/16/19 06:07 Hospitalist ROS - Review of Systems ENT: denies: ear pain, ear discharge, nose pain, nose discharge, nose congestion , mouth pain, mouth swelling, throat pain, throat swelling, other Respiratory: denies: cough, dry, shortness of breath, hemoptysis, SOB with excertion, pleuritic pain, sputum, wheezing, other Cardiovascular: denies: chest pain, palpitations, orthopnea, paroxysmal noc. dyspnea, edema, light headedness, other Gastrointestinal: denies: nausea, vomiting, abdominal pain, diarrhea, constipation, melena, hematochezia, other Genitourinary: denies: dysuria, frequency, incontinence, hematuria, retention, other Musculoskeletal: denies: neck pain, shoulder pain, arm pain, back pain, hand pain, leg pain, foot pain, other - Medication Medications: Active Medications Generic Name Dose Route Start Last Admin Trade Name Freq PRN Reason Stop Dose Admin Albuterol Sulfate 2 puff 08/16/19 10:40 08/16/19 20:30 Proventil Hfa INH 2 puff Q2H PRN Administration SOB &/or Wheezing Amiodarone HCl 200 mg 08/16/19 21:00 08/17/19 08:33 Cordarone PO 200 mg BID HAM Administration Apixaban 5 mg 08/16/19 21:00 08/17/19 08:33 Eliquis PO 5 mg BID HAM Administration Atorvastatin Calcium 20 mg 08/16/19 21:00 08/16/19 20:03 Lipitor PO 20 mg HS HAM Administration Bisacodyl 10 mg 08/15/19 10:49 08/15/19 15:28 Dulcolax [place] 10 mg DAILYPRN PRN Administration Constipation Calcium Carbonate 1,000 mg 08/15/19 10:49 08/16/19 17:56 Tums PO 1,000 mg Q4H PRN Administration Heartburn or Indigestion Carvedilol 12.5 mg 08/16/19 17:00 08/17/19 08:33 Coreg PO 12.5 mg BID-WM HAM Administration Cholecalciferol 5,000 units 08/17/19 09:00 08/17/19 08:32 Vitamin D3 PO 5,000 units DAILY HAM Administration Clopidogrel Bisulfate 75 mg 08/17/19 09:00 08/17/19 08:33 Plavix PO 75 mg DAILY HAM Administration Famotidine 20 mg 08/15/19 21:00 08/17/19 08:33 Pepcid PO 20 mg BID HAM Administration Finasteride 5 mg 08/16/19 21:00 08/16/19 20:04 Proscar PO 5 mg HS HAM Administration Furosemide 20 mg 08/17/19 09:00 08/17/19 08:33 Lasix PO 20 mg Q2DAYS HAM Administration Gabapentin 600 mg 08/16/19 21:00 08/16/19 20:04 Neurontin PO 600 mg HS HAM Administration Guaifenesin 600 mg 08/17/19 09:00 08/17/19 08:33 Mucinex PO 600 mg Q12HR HAM Administration Cefepime HCl 2 gm/ Sodium 100 mls @ 200 mls/hr 08/15/19 20:00 08/17/19 08:33 Chloride IVPB 100 mls 08,1999 HAM Administration Levofloxacin 750 mg/ Device 150 mls @ 100 mls/hr 08/16/19 09:00 08/17/19 08: 57 IVPB 150 mls DAILY HAM Administration Levothyroxine Sodium 25 mcg 08/17/19 06:00 08/17/19 05:16 Synthroid PO 25 mcg 0600 HAM Administration Metoclopramide HCl 10 mg 08/15/19 10:49 08/16/19 17:38 Reglan IVP 10 mg Q6H PRN Administration Nausea/Vomiting Potassium Chloride 8 meq 08/17/19 08:00 08/17/19 08:57 Slow-K 8 Meq PO 8 meq QAM-WM HAM Administration Tamsulosin HCl 0.4 mg 08/16/19 21:00 08/16/19 20:04 Flomax PO 0.4 mg HS HAM Administration Zolpidem Tartrate 10 mg 08/15/19 13:00 08/16/19 20:04 Ambien PO 10 mg HSPRN PRN Administration Insomnia - Exam General Appearance: NAD, awake alert Eye: PERRL, anicteric sclera ENT: normocephalic atraumatic, no oropharyngeal lesions Neck: supple, symmetric, no JVD Heart: RRR, no murmur, no gallops, no rubs Respiratory: CTAB, no wheezes, no rales, no ronchi Gastrointestinal: soft, non-tender, non-distended, normal bowel sounds Extremities: no cyanosis, no clubbing Skin: normal turgor, no lesions Neurological: no focal deficits, no new deficit Musculoskeletal: normal tone, normal strength Psychiatric: normal affect, normal behavior Hosp A/P (1) Community acquired bacterial pneumonia Code(s): J15.9 - UNSPECIFIED BACTERIAL PNEUMONIA Status: Acute (2) Obesity (BMI 30.0-34.9) Code(s): E66.9 - OBESITY, UNSPECIFIED Status: Chronic (3) CAD (coronary artery disease) Code(s): I25.10 - ATHSCL HEART DISEASE OF [place] CORONARY ARTERY W/O ANG PCTRS Status: Chronic (4) HTN (hypertension) Code(s): I10 - ESSENTIAL (PRIMARY) HYPERTENSION Status: Chronic Qualifiers: (5) Ischemic cardiomyopathy Code(s): I25.5 - ISCHEMIC CARDIOMYOPATHY Status: Chronic (6) Multiple sclerosis Code(s): G35 - MULTIPLE SCLEROSIS Status: Chronic (7) Neurogenic bladder Code(s): N31.9 - NEUROMUSCULAR DYSFUNCTION OF [place], UNSPECIFIED Status: Chronic (8) Hyponatremia Code(s): E87.1 - HYPO-OSMOLALITY AND HYPONATREMIA Status: Acute (9) NSVT (nonsustained ventricular tachycardia) Code(s): I47.2 - VENTRICULAR TACHYCARDIA Status: Chronic (10) PAF (paroxysmal atrial fibrillation) Code(s): I48.0 - PAROXYSMAL ATRIAL FIBRILLATION Status: Chronic (11) Chronic anticoagulation Code(s): Z79.01 - CHCF (CURRENT) USE OF ANTICOAGULANTS Status: Chronic (12) Chronic systolic CHF (congestive heart failure) Code(s): I50.22 - CHRONIC SYSTOLIC (CONGESTIVE) HEART FAILURE Status: Chronic - Plan old records reviewed/req, continue antibiotics 08/16/19- continue iv antibiotics for now, medication reviewed and continue to provide symptomatic treatment, medication reconciled 08/17/19-, continue antibiotics, medication reviewed and continue to provide symptomatic treatment
[2019-08-17] MEDS: Gabapentin 300 MG CAP PO SCH (20:41)
[2019-08-17] MEDS: Atorvastatin Calcium 20 MG TAB PO SCH (20:42)
[2019-08-17] MEDS: Tamsulosin HCl 0.4 MG CAP PO SCH (20:42)
[2019-08-17] MEDS: Finasteride 5 MG TAB PO SCH (20:42)
[2019-08-17] MEDS: Zolpidem Tartrate 5 MG TAB PO PRN (20:58)
[2019-08-18] MEDS: Levothyroxine Sodium 25 MCG TAB PO SCH (05:17)
[2019-08-18] MEDS: Cefepime 2 GM in Sodium Chloride 0.9% 100 ML IVPB SCH (08:20)
[2019-08-18] MEDS: Clopidogrel Bisulfate 75 MG TAB PO SCH (08:24)
[2019-08-18] MEDS: Apixaban 5 MG TAB PO SCH (08:24)
[2019-08-18] MEDS: Potassium Chloride 8 MEQ TAB PO SCH (08:25)
[2019-08-18] MEDS: Famotidine 20 MG TAB PO SCH (08:25)
[2019-08-18] MEDS: Amiodarone 200 MG TAB PO SCH (08:26)
[2019-08-18] MEDS: Carvedilol 6.25 MG TAB PO SCH (08:26)
[2019-08-18] MEDS: guaiFENesin ER 600 MG TAB PO SCH (08:26)
--- NOTE | 2019-08-18 11:19 | DIS ---
DATE OF ADMISSION: 08/15/2019 DATE OF DISCHARGE: 08/18/2019 PRIMARY CARE PHYSICIAN: Dr. Oliver Grajeda. DISCHARGE DISPOSITION: Home. PRIMARY DISCHARGE DIAGNOSIS: 1. Community-acquired bacterial pneumonia. 2. Chronic hyponatremia. SECONDARY DISCHARGE DIAGNOSES: 1. Multiple sclerosis. 2. Neurogenic bladder. 3. Ischemic cardiomyopathy. 4. Hypertension. 5. Coronary artery disease. 6. History of ventricular tachycardia and paroxysmal atrial fibrillation. 7. Chronic systolic heart failure. 8. Chronic anticoagulation. 9. Obesity with BMI 32. 10. Chronic hyponatremia. 11. Chronic physical deconditioning. 12. Benign enlargement of prostate. 13. Hypothyroidism. PRIMARY PROCEDURE/OPERATION: None. RADIOLOGICAL INVESTIGATION: Chest x-ray on admission showed right lower lobe pneumonia. SIGNIFICANT LABORATORY DATA: WBC 6.2, hemoglobin 14.2, and platelet 131. Sodium 125, creatinine 0.79. LFT normal. BNP 383. Urinalysis unremarkable. Blood culture negative. Influenza negative. Urine culture negative. DISCHARGE MEDICATION: 1. Omnicef 300 mg p.o. twice daily for 7 days. 2. Mucinex 600 mg p.o. twice daily for 7 days. The patient will continue following medication, which he was taking prior to arrival without any change in dose; 1. ProAir HFA 2 puffs q.2 hourly p.r.n. 2. Lasix 20 mg every 2 days. 3. Armodafinil 150 mg q.7 days. 4. Vitamin B complex one tablet daily. 5. Calcium with vitamin D one tablet p.o. at bedtime. 6. Vitamin D3 of 5000 units p.o. daily. 7. Plavix 75 mg p.o. daily. 8. Eliquis 5 mg p.o. b.i.d. 9. Synthroid 25 mcg p.o. daily. 10. Melatonin 10 mg p.o. at bedtime. 11. Multivitamin one tablet p.o. daily. 12. Ambien 5 mg p.o. at bedtime. 13. Lipitor 20 mg p.o. at bedtime. 14. Coreg 12.5 mg p.o. b.i.d. 15. Potassium chloride 80 mEq p.o. daily. 16. Flomax 0.4 mg p.o. at bedtime. 17. Gabapentin 600 mg p.o. at bedtime. 18. Proscar 5 mg p.o. daily at bedtime. CONTRAINDICATION: None. CODE STATUS: Full code. INPATIENT ANALYSIS INTERN: None. ALLERGIES: IODINE. DISCHARGE PLAN: Posthospital, the patient will follow up with primary care physician in 1 week. HOSPITAL COURSE: A 74-year-old male, who is bedbound with above-mentioned medical problem, who was admitted by me. Please see my HPI for further details. The patient was admitted for right lower lobe pneumonia. The patient was treated with cefepime and levofloxacin while in hospital and on discharge, we changed to Omnicef. The patient was afebrile and hemodynamically stable. The patient was continued with his home medication as well as on discharge. The patient is seen and examined at bedside today. The patient is medically stable for discharge today. PHYSICAL EXAMINATION: VITAL SIGNS: Currently, temperature 97.6, pulse 76, respiratory rate 18, saturation 96%, and blood pressure 104/56. Weight 250 pounds. GENERAL: The patient is currently alert, awake, in no obvious acute distress. HEENT: Head; normocephalic, atraumatic. LUNGS: Grossly clear to auscultation without any obvious rhonchi or rales. CARDIAC: S1 and S2 appears regular without any murmur. ABDOMEN: Morbid obesity, limiting examination. EXTREMITIES: No edema. Good distal pulsation. NEUROLOGIC: Nonfocal examination. The patient has bedbound status and the patient is doing in and out catheter for his neurogenic bladder. The patient will be discharged home later on today. Job ID: [id number]
--- NOTE | 2019-08-18 11:49 | PDOC.HOSPP ---
- Subjective Encounter Date: 08/18/19 Encounter Time: 11:30 Subjective: Patient seen and examined. No new complaints. No overnight events - Objective Vital Signs & Weight: Vital Signs (12 hours) Temp Pulse Resp BP BP BP Pulse Ox 08/18/19 08:26 102/57 L 08/18/19 08:00 97.6 F 103 H 18 104/56 L 96 08/18/19 04:00 98.0 F 76 20 95/57 L 95 Weight Admit Weight 250 lb 8 oz Weight 250 lb 8 oz I&O: 08/17/19 08/18/19 08/19/19 06:59 06:59 06:59 Intake Total 1010 730 Output Total 950 950 Balance 60 -220 Result Diagrams: 08/16/19 06:07 08/16/19 06:07 Hospitalist ROS - Review of Systems ENT: denies: ear pain, ear discharge, nose pain, nose discharge, nose congestion , mouth pain, mouth swelling, throat pain, throat swelling, other Respiratory: denies: cough, dry, shortness of breath, hemoptysis, SOB with excertion, pleuritic pain, sputum, wheezing, other Cardiovascular: denies: chest pain, palpitations, orthopnea, paroxysmal noc. dyspnea, edema, light headedness, other Gastrointestinal: denies: nausea, vomiting, abdominal pain, diarrhea, constipation, melena, hematochezia, other Genitourinary: denies: dysuria, frequency, incontinence, hematuria, retention, other Musculoskeletal: denies: neck pain, shoulder pain, arm pain, back pain, hand pain, leg pain, foot pain, other - Medication Medications: Active Medications Generic Name Dose Route Start Last Admin Trade Name Freq PRN Reason Stop Dose Admin Albuterol Sulfate 2 puff 08/16/19 10:40 08/16/19 20:30 Proventil Hfa INH 2 puff Q2H PRN Administration SOB &/or Wheezing Amiodarone HCl 200 mg 08/16/19 21:00 08/18/19 08:26 Cordarone PO 200 mg BID HAM Administration Apixaban 5 mg 08/16/19 21:00 08/18/19 08:24 Eliquis PO 5 mg BID HAM Administration Atorvastatin Calcium 20 mg 08/16/19 21:00 08/17/19 20:42 Lipitor PO 20 mg HS HAM Administration Bisacodyl 10 mg 08/15/19 10:49 08/15/19 15:28 Dulcolax [place] 10 mg DAILYPRN PRN Administration Constipation Calcium Carbonate 1,000 mg 08/15/19 10:49 08/16/19 17:56 Tums PO 1,000 mg Q4H PRN Administration Heartburn or Indigestion Carvedilol 12.5 mg 08/16/19 17:00 08/18/19 08:26 Coreg PO 12.5 mg BID-WM HAM Administration Cholecalciferol 5,000 units 08/17/19 09:00 08/18/19 08:24 Vitamin D3 PO 5,000 units DAILY HAM Administration Clopidogrel Bisulfate 75 mg 08/17/19 09:00 08/18/19 08:24 Plavix PO 75 mg DAILY HAM Administration Famotidine 20 mg 08/15/19 21:00 08/18/19 08:25 Pepcid PO 20 mg BID HAM Administration Finasteride 5 mg 08/16/19 21:00 08/17/19 20:42 Proscar PO 5 mg HS HAM Administration Furosemide 20 mg 08/17/19 09:00 08/17/19 08:33 Lasix PO 20 mg Q2DAYS HAM Administration Gabapentin 600 mg 08/16/19 21:00 08/17/19 20:41 Neurontin PO 600 mg HS HAM Administration Guaifenesin 200 mg 08/15/19 10:49 08/17/19 14:12 Robitussin Sf PO 200 mg Q4H PRN Administration Cough Guaifenesin 600 mg 08/17/19 09:00 08/18/19 08:26 Mucinex PO 600 mg Q12HR HAM Administration Cefepime HCl 2 gm/ Sodium 100 mls @ 200 mls/hr 08/15/19 20:00 08/18/19 08:20 Chloride IVPB 100 mls 0800,2000 HAM Administration Levofloxacin 750 mg/ Device 150 mls @ 100 mls/hr 08/16/19 09:00 08/18/19 08: 27 IVPB 150 mls DAILY HAM Administration Levothyroxine Sodium 25 mcg 08/17/19 06:00 08/18/19 05:17 Synthroid PO 25 mcg 0600 HAM Administration Metoclopramide HCl 10 mg 08/15/19 10:49 08/16/19 17:38 Reglan IVP 10 mg Q6H PRN Administration Nausea/Vomiting Potassium Chloride 8 meq 08/17/19 08:00 08/18/19 08:25 Slow-K 8 Meq PO 8 meq QAM-WM HAM Administration Tamsulosin HCl 0.4 mg 08/16/19 21:00 08/17/19 20:42 Flomax PO 0.4 mg HS HAM Administration Zolpidem Tartrate 10 mg 08/15/19 13:00 08/17/19 20:58 Ambien PO 10 mg HSPRN PRN Administration Insomnia - Exam General Appearance: NAD, awake alert Eye: PERRL, anicteric sclera ENT: normocephalic atraumatic, no oropharyngeal lesions Neck: supple, symmetric, no JVD Heart: RRR, no murmur, no gallops Respiratory: CTAB, no wheezes, no rales Gastrointestinal: soft, non-tender, non-distended, normal bowel sounds Extremities: no cyanosis, no clubbing Skin: normal turgor, no lesions Neurological: no focal deficits Musculoskeletal: normal tone, normal strength Psychiatric: normal affect, normal behavior Hosp A/P (1) Community acquired bacterial pneumonia Code(s): J15.9 - UNSPECIFIED BACTERIAL PNEUMONIA Status: Acute (2) Obesity (BMI 30.0-34.9) Code(s): E66.9 - OBESITY, UNSPECIFIED Status: Chronic (3) CAD (coronary artery disease) Code(s): I25.10 - ATHSCL HEART DISEASE OF [place] CORONARY ARTERY W/O ANG PCTRS Status: Chronic (4) HTN (hypertension) Code(s): I10 - ESSENTIAL (PRIMARY) HYPERTENSION Status: Chronic Qualifiers: (5) Ischemic cardiomyopathy Code(s): I25.5 - ISCHEMIC CARDIOMYOPATHY Status: Chronic (6) Multiple sclerosis Code(s): G35 - MULTIPLE SCLEROSIS Status: Chronic (7) Neurogenic bladder Code(s): N31.9 - NEUROMUSCULAR DYSFUNCTION OF BLADDER, UNSPECIFIED Status: Chronic (8) Hyponatremia Code(s): E87.1 - HYPO-OSMOLALITY AND HYPONATREMIA Status: Acute (9) NSVT (nonsustained ventricular tachycardia) Code(s): I47.2 - VENTRICULAR TACHYCARDIA Status: Chronic (10) PAF (paroxysmal atrial fibrillation) Code(s): I48.0 - PAROXYSMAL ATRIAL FIBRILLATION Status: Chronic (11) Chronic anticoagulation Code(s): Z79.01 - NURSING HOME (CURRENT) USE OF ANTICOAGULANTS Status: Chronic (12) Chronic systolic CHF (congestive heart failure) Code(s): I50.22 - CHRONIC SYSTOLIC (CONGESTIVE) HEART FAILURE Status: Chronic - Plan old records reviewed/req, continue antibiotics 08/16/19- continue iv antibiotics for now, medication reviewed and continue to provide symptomatic treatment, medication reconciled 08/17/19-, continue antibiotics, medication reviewed and continue to provide symptomatic treatment 08/18/19 medication reviewed and continue to provide symptomatic treatment, see discharge sara
[2019-08-18 12:24] VITALS: BP 110/65; TEMP 97.8
== END 2019-08-18 12:26 | disposition home health service (06) | DRG 194 ==
LOC: ERS 07:32 → T4-B 09:10
PROVIDERS: ADMIT Internal Medicine; ATTEND Internal Medicine
DX: J18.9 Pneumonia, unspecified organism (principal); E87.1 Hypo-osmolality and hyponatremia; I42.8 Other cardiomyopathies; I50.22 Chronic systolic (congestive) heart failure; Z68.41 Body mass index [BMI] 40.0-44.9, adult; I47.2 Ventricular tachycardia; I25.10 Atherosclerotic heart disease of native coronary artery without angina pectoris; E78.5 Hyperlipidemia, unspecified; F41.9 Anxiety disorder, unspecified; F32.9 Major depressive disorder, single episode, unspecified; N31.9 Neuromuscular dysfunction of bladder, unspecified; I11.0 Hypertensive heart disease with heart failure; N40.0 Benign prostatic hyperplasia without lower urinary tract symptoms; E66.01 Morbid (severe) obesity due to excess calories; E03.9 Hypothyroidism, unspecified; J15.9 Unspecified bacterial pneumonia; I48.0 Paroxysmal atrial fibrillation; G35 Multiple sclerosis; Z79.01 Long term (current) use of anticoagulants; I25.2 Old myocardial infarction; Z95.1 Presence of aortocoronary bypass graft; Z74.01 Bed confinement status; Z88.8 Allergy status to other drugs, medicaments and biological substances; Z91.041 Radiographic dye allergy status
CPT/HCPCS: 36415; 71045; 80048; 80053; 81001; 83605; 83880; 84484; 85025; 87040; 87086; 87804; 90471; 90670; 93005; 96365; 96367; 96368; G0009; J0692; J1956; J2765; J3490

== ENCOUNTER 2019-08-20 21:29 | Inpatient (IN) | payer BC, MEDICARE ==
[2019-08-20] MEDS ORDERED: Albuterol Sulfate 2.5 mg/3 ml Neb ONE (22:06)
[2019-08-20 22:12] LABS: Mean Corpuscular HGB CONC 33.3 g/dL (32.0-36.0); Mean Corpuscular Hemoglobin 32.7 pg (27.0-31.0); Mean Platelet Volume 8.8 fL (7.4-10.4); Platelet Count 141 thou/uL (130-400); RBC Distribution Width 11.8 % (11.5-14.5); Red Blood Cell (RBC) Count 4.58 mill/uL (4.70-6.10); White Blood Cell (WBC) Count 7.7 thou/uL (4.8-10.8)
[2019-08-20 22:32] LABS: Band 1 % (5-11); Lymphocytes 9 % (21-51); MDiff Complete? YES; Metamyelocyte 1 % (0-0); Monocytes 11 % (0-10); Neutrophil 78 % (42-75); Platelet Morphology Comment Appears Adequate; RBC Morphology Normal
--- NOTE | 2019-08-20 22:35 | RAD ---
ONE VIEW CHEST: 08/20/19 HISTORY: Dyspnea which has been getting progressively worse. COMPARISON: 08/15/19. FINDINGS: Dual lead left subclavian AICD device again noted in place. Postsurgical change related to median jean marie rnotomy are again seen. Again noted are the patchy densities at the right lung base and to a lesser e xtent at the left lung base. There is suggestion of blunting of the left lateral costophrenic angle, but there is also overlying soft tissue density which limits adequate evaluation. Cardiac silhouette is stable in size. Pulmonary vasculature is at the upper limits of normal. No other interval change. IMPRESSION: Persistent patchy lower lobe air space densities which again may reflect pneumonia. Continue follow u p to complete resolution is recommended. POS: ROCKY
[2019-08-20 22:38] LABS: ALT (SGPT) 27 U/L (8-55); AST (SGOT) 28 U/L (5-34); Albumin 3.8 g/dL (3.4-4.8); Alkaline Phosphatase 93 U/L (40-110); Anion Gap 16 mmol/L (10-20); BUN (Urea Nitrogen) 7 mg/dL (8.4-25.7); Bilirubin, Total 1.2 mg/dL (0.2-1.2); Calc. Creatinine Clearance 0 mL/min (70-130); Calcium 8.6 mg/dL (7.8-10.44); Carbon Dioxide 25 mmol/L (23-31); Chloride 87 mmol/L (98-107); Estimated GFR-MDRD Greater than 90; Glucose 109 mg/dL (83-110); Potassium 4.7 mmol/L (3.5-5.1); Protein, Total 6.8 g/dL (5.8-8.1); Sodium 123 mmol/L (136-145)
[2019-08-20] MEDS ORDERED: Furosemide 40 MG/4 ML VIAL ONE (23:13)
[2019-08-20] MEDS ORDERED: Ondansetron PF 4 MG/2 ML Vial ONE (23:23)
[2019-08-21] MEDS ORDERED: Acetaminophen 325 MG TAB PO PRN (09:48)
[2019-08-21] MEDS ORDERED: Bisacodyl 10 MG SUPP PR PRN (09:48)
[2019-08-21] MEDS ORDERED: Senokot S 8.6-50 MG TAB PO PRN (09:48)
[2019-08-21] MEDS ORDERED: Loratadine 10 MG TAB PO PRN (09:55)
[2019-08-21] MEDS ORDERED: Albuterol Sulfate 1.25 MG/3 ML NEB NEB PRN (09:58)
[2019-08-21 10:13] LABS: Anion Gap 14 mmol/L (10-20); BUN (Urea Nitrogen) 8 mg/dL (8.4-25.7); Calc. Creatinine Clearance 0 mL/min (70-130); Calcium 8.9 mg/dL (7.8-10.44); Carbon Dioxide 28 mmol/L (23-31); Chloride 85 mmol/L (98-107); Estimated GFR-MDRD Greater than 90; Glucose 113 mg/dL (83-110); Potassium 4.4 mmol/L (3.5-5.1); Sodium 123 mmol/L (136-145)
[2019-08-21] MEDS: Cefepime 2 GM in Sodium Chloride 0.9% 100 ML IVPB SCH ×2 (10:13→22:51)
[2019-08-21] MEDS ORDERED: Cefepime 2 GM VIAL ONE (10:41)
--- NOTE | 2019-08-21 11:03 | HP ---
PRIMARY CARE PHYSICIAN: Taras Boyd DO CHIEF COMPLAINT: Worsening shortness of breath. HISTORY OF PRESENT ILLNESS: A 74-year-old male with multiple comorbidities including coronary artery disease, status post CABG, multiple sclerosis associated with neurogenic bladder and quadriparesis amongst others, who was just discharged from the hospital on August 18, 2019, on oral antibiotics, Omnicef following treatment with IV antibiotics, IV cefepime and levofloxacin for 3 days for right lower lobe pneumonia, now readmitted due to worsening shortness of breath associated with worsening weakness and hypoxia. The patient was found by EMS in his bed hypoxic with SpO2 in low 80s. There was no history of fever. He was treated with DuoNeb with improvement in oxygen saturation to 90s. He was subsequently brought to the hospital. The patient reported cough as well as pleuritic chest pain, but had difficulty coughing up sputum. On presentation to the ER last night, vitals were as follows; pulse 109, respiratory rate 17, temperature 97.9, SpO2 95% on 4 L nasal cannula, and blood pressure is 169/111. Current vitals this morning showed BP 127/109, pulse 97, respiratory rate 18, temperature 98.4, SpO2 94% on 3 L nasal cannula. The patient denied abdominal pain, nausea, vomiting, chest pain, hematuria, leg swelling, worsening or new deficit. PAST MEDICAL HISTORY: 1. Chronic physical deconditioning/chronic bed-bound status. 2. BPH. 3. Hypertension. 4. Dyslipidemia. 5. Multiple sclerosis. 6. Quadriparesis. 7. Neurogenic bladder. 8. Neurogenic bowel. 9. Chronic anticoagulation with Eliquis for paroxysmal atrial fibrillation. 10. Sick sinus syndrome/bradycardia. 11. Paroxysmal atrial fibrillation. 12. Paroxysmal nonsustained ventricular tachycardia. 13. Ischemic cardiomyopathy. 14. Coronary artery disease, status post CABG. PAST SURGICAL HISTORY: 1. Coronary artery bypass grafting. 2. Cardiac catheterization. 3. Tonsillectomy. 4. Adenoidectomy. 5. Left knee surgery. 6. Left second toe surgery. 7. Vasectomy. 8. Sinus surgery. PAST PSYCHIATRIC HISTORY: Anxiety and depression. FAMILY HISTORY: Positive for diabetes and heart disease among several family members. SOCIAL HISTORY: The patient lives at home with spouse. He is retired. He is chronically bed-bound. Has remote history of smoking, but quit several years ago. Denied alcohol or recreational drug use. The patient wants to be full code. Spouse is the surrogate decision maker. ALLERGIES: IV CONTRAST. HOME MEDICATIONS: 1. Albuterol 2 puffs inhalation as needed. 2. Lasix 20 mg p.o. daily. 3. Nuvigil 150 mg p.o. every 7 days as needed. 4. Eliquis 5 mg p.o. b.i.d. 5. Vitamin B complex 1 capsule p.o. daily. 6. Calcium carbonate with citrate and vitamin D 600/500 one tablet p.o. daily at bedtime. 7. Cholecalciferol 5000 units p.o. daily. 8. Dextromethorphan (Robitussin) 15 mg p.o. at bedtime p.r.n. 9. Proscar 5 mg p.o. daily at bedtime. 10. Gabapentin 600 mg p.o. daily at bedtime. 11. Levothyroxine 25 mcg p.o. daily. 12. Loratadine 10 mg p.o. daily p.r.n. 13. Melatonin 10 mg p.o. daily at bedtime. 14. Multivitamin with folic acid, lycopene and lutein (Men 50+ multivitamin tablet) one tablet p.o. daily. 15. Ambien 5 mg p.o. daily at bedtime. 16. Omnicef 300 mg p.o. daily p.o. b.i.d. 17. Acetaminophen 650 mg p.o. q.6 p.r.n. for pain. 18. Amiodarone 1 tablet 200 mg p.o. daily. 19. Lipitor 20 mg p.o. daily at bedtime. 20. Carvedilol 12.5 mg p.o. b.i.d. 21. Plavix 75 mg p.o. daily. 22. Mucinex 600 mg p.o. b.i.d. 23. Potassium chloride 8 mEq p.o. daily. 24. Flomax 0.4 mg p.o. daily at bedtime. REVIEW OF SYSTEMS: 12-point review of system performed was negative, other than pertinent positives and negatives included in the history of present illness. PHYSICAL EXAMINATION: VITAL SIGNS: Temperature 98.4, pulse 97, respiratory rate 18, SpO2 of 94% on 3 L nasal cannula, blood pressure is 127/109. GENERAL: Obese elderly male, in no obvious distress. Afebrile. Anicteric. Acyanotic. HEENT: Normocephalic, atraumatic. Oral mucosa is moist. NECK: Supple, symmetrical with no JVD. CARDIOVASCULAR: Regular rhythm and rate with normal heart sounds one and two. RESPIRATORY: Decreased air entry in right lung base, especially posteriorly. Crackles and some transmitted breath sounds heard in all other lung zones with no obvious rhonchi. Work of breathing is not increased. GASTROINTESTINAL: Obese, soft, nontender, nondistended with normal bowel sounds. EXTREMITIES: Grossly normal looking atraumatic with no obvious edema or erythema. CENTRAL NERVOUS SYSTEM: Conscious and alert, oriented x3 with appropriate mental status. Cranial nerves 2 through 12 are grossly intact. Power is 1 to 2/5 on the left lower extremity, 2 to 3/5 on right lower extremity and 3 to 4 on both upper extremities. DIAGNOSTIC DATA: CBC showed WBC count of 7.7, hemoglobin of 15.0, MCV of 98, platelet of 141. CMP showed sodium 123, potassium 4.7, chloride 87, CO2 of 25, BUN 7, creatinine 0.67, glucose 109, calcium 8.6, total bilirubin 1.2, AST 28, ALT 27, alkaline phosphatase 93, total protein 6.8, albumin 3.8, globulin 3.0. Initial cardiac markers on presentation on August 20 at 22 hours showed troponin less than 0.010 and BNP of 1028.7. Subsequent troponin x2 every 3 hours apart was less than 0.010. Chest x-ray showed persistent right lung base patchy airspace densities consistent with pneumonia. ASSESSMENT: 1. Acute respiratory failure with hypoxia. 2. Persistent right lower lobe pneumonia. The patient was discharged on oral antibiotics, Omnicef after improving with IV antibiotics. Inadequate coverage seems most likely. 3. Hyponatremia: Sodium was . The patient has chronic mild hyponatremia ranging from 129 to 131. 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 4. Quadriparesis and chronic debility/bed-bound status due to advanced multiple sclerosis. 5. Coronary artery disease, status post coronary artery bypass grafting. 6. Sick sinus syndrome, status post pacemaker placement. 7. Paroxysmal atrial fibrillation. PLAN: 1. We will admit the patient to telemetry. 2. We will start broad-spectrum IV antibiotics therapy with cefepime and levofloxacin. 3. We will get sputum culture. 4. We will start bronchodilator treatment as well as chest physio. 5. We will consult Pulmonary. 6. We will continue anticoagulation with Eliquis. 7. We will also get urine and plasma osmolality to confirm SIADH. 8. We will also continue mucolytics and other home medications. 9. PT, OT, and Speech Therapy also will be consulted. 10. Code status: Full code. Spouse is the surrogate decision maker. It is anticipated that the patient will be hospitalized for at least three days to ascertain improvement and try the patient on oral antibiotics before discharge. Job ID: [id number]
[2019-08-21 12:31] LABS: Bacteria/HPF None Seen HPF (None Seen); Bilirubin Negative (Negative); Blood, Urine Trace (Negative); Clarity Clear (Clear); Glucose, Urine (Dipstick) Normal (Negative); Leukocyte Negative Leu/uL (Negative); Nitrite Negative (Negative); Protein, Urine (Dipstick) Negative (Neg-Trace); Squamous Epithelial 0-3 HPF (0-3); Urobilinogen Normal mg/dL (Less than 2); WBC/HPF 0-3 HPF (0-3)
[2019-08-21 12:36] LABS: Urine Culture Reflex No No
[2019-08-21] MEDS: Albuterol Sulfate 1.25 MG/3 ML NEB NEB SCH ×3 (13:35→19:57)
[2019-08-21] MEDS: Carvedilol 6.25 MG TAB PO SCH (17:58)
[2019-08-21] MEDS: Finasteride 5 MG TAB PO SCH (20:27)
[2019-08-21] MEDS: Apixaban 5 MG TAB PO SCH (20:27)
[2019-08-21] MEDS: Tamsulosin HCl 0.4 MG CAP PO SCH (20:27)
[2019-08-21] MEDS: Melatonin 3 MG TAB PO SCH (20:27)
[2019-08-21] MEDS: guaiFENesin ER 600 MG TAB PO SCH (20:27)
[2019-08-21] MEDS: Gabapentin 300 MG CAP PO SCH (20:27)
[2019-08-21] MEDS: Atorvastatin Calcium 20 MG TAB PO SCH (20:27)
[2019-08-21] MEDS: Zolpidem Tartrate 5 MG TAB PO PRN (20:28)
[2019-08-21] MEDS ORDERED: Zolpidem Tartrate 5 MG TAB PO SCH (21:00)
[2019-08-22 06:26] LABS: Band 2 % (5-11); Eosinophils 2 % (0-10); Hemoglobin 15.1 g/dL (14.0-18.0); Lymphocytes 12 % (21-51); MDiff Complete? YES; Mean Corpuscular HGB CONC 32.7 g/dL (32.0-36.0); Mean Corpuscular Hemoglobin 33.1 pg (27.0-31.0); Mean Platelet Volume 8.9 fL (7.4-10.4); Monocytes 18 % (0-10); Neutrophil 66 % (42-75); Platelet Count 107 thou/uL (130-400); Platelet Morphology Comment Appears Decreased; RBC Distribution Width 11.9 % (11.5-14.5); RBC Morphology Normal; Red Blood Cell (RBC) Count 4.56 mill/uL (4.70-6.10); White Blood Cell (WBC) Count 7.7 thou/uL (4.8-10.8)
[2019-08-22 06:31] LABS: Albumin 3.6 g/dL (3.4-4.8); Anion Gap 11 mmol/L (10-20); Calc. Creatinine Clearance 131 mL/min (70-130); Calcium 8.9 mg/dL (7.8-10.44); Carbon Dioxide 30 mmol/L (23-31); Chloride 87 mmol/L (98-107); Estimated GFR-MDRD Greater than 90; Glucose 106 mg/dL (83-110); Phosphorus 3.9 mg/dL (2.3-4.7); Potassium 4.3 mmol/L (3.5-5.1); Sodium 124 mmol/L (136-145)
[2019-08-22 06:32] LABS: BUN (Urea Nitrogen) 11 mg/dL (8.4-25.7); BUN/Creatinine Ratio 13.58
[2019-08-22] MEDS: Albuterol Sulfate 1.25 MG/3 ML NEB NEB SCH ×4 (07:29→19:17)
[2019-08-22] MEDS: Levothyroxine Sodium 25 MCG TAB PO SCH (10:32)
[2019-08-22] MEDS: Clopidogrel Bisulfate 75 MG TAB PO SCH (10:33)
[2019-08-22] MEDS: Cefepime 2 GM in Sodium Chloride 0.9% 100 ML IVPB SCH ×2 (10:33→21:28)
[2019-08-22] MEDS: Carvedilol 6.25 MG TAB PO SCH ×2 (10:33→17:36)
[2019-08-22] MEDS: Apixaban 5 MG TAB PO SCH ×2 (10:33→21:29)
[2019-08-22] MEDS: guaiFENesin ER 600 MG TAB PO SCH ×2 (10:33→21:29)
[2019-08-22] MEDS ORDERED: Vancomycin HCl 1.5 GM in Sodium Chloride 0.9% 250 ML 300 ML IVPB SCH (11:00)
[2019-08-22] MEDS ORDERED: Vancomycin HCl 1.75 GM in Sodium Chloride 0.9% 500 ML IVPB SCH (11:15)
--- NOTE | 2019-08-22 13:33 | PDOC.HOSPP ---
- Subjective Encounter Date: 08/22/19 Encounter Time: 09:30 Subjective: 74 y/o male with MS associated with chronic debility/bedbound status recently discharged from Hospital following treatment for pneumonia on oral antibiotics now readmitted with worsening SOB associated with Hypoxia and worsening weakness. CXR showed persistent R lower lobe infiltrates. Denied Fever. Started on IV antibiotics, bronchodilators and oxygen with improvement. Was hard to arouse earlier. took ambien last night. - Objective Vital Signs & Weight: Vital Signs (12 hours) Temp Pulse Resp BP BP BP BP 08/22/19 10:33 132/64 08/22/19 09:12 127/65 127/62 08/22/19 07:40 97.8 F 90 15 127/59 L 08/22/19 07:30 08/22/19 07:29 93 16 08/22/19 04:00 97.3 F L 95 20 123/62 Pulse Ox 08/22/19 10:33 08/22/19 09:12 08/22/19 07:40 97 08/22/19 07:30 92 L 08/22/19 07:29 08/22/19 04:00 92 L Weight Admit Weight 247 lb 12.8 oz Weight 246 lb I&O: 08/21/19 08/22/19 08/23/19 06:59 06:59 06:59 Intake Total 340 Balance 340 Result Diagrams: 08/22/19 05:31 08/22/19 05:31 Hospitalist ROS - Medication Medications: Active Medications Generic Name Dose Route Start Last Admin Trade Name Freq PRN Reason Stop Dose Admin Albuterol Sulfate 1.25 mg 08/21/19 11:00 08/22/19 07:29 Albuterol Sulfate NEB 1.25 mg QID-RT HAM Administration Apixaban 5 mg 08/21/19 21:00 08/22/19 10:33 Eliquis PO 5 mg BID HAM Administration Atorvastatin Calcium 20 mg 08/21/19 21:00 08/21/19 20:27 Lipitor PO 20 mg HS HAM Administration Carvedilol 12.5 mg 08/21/19 17:00 08/22/19 10:33 Coreg PO 12.5 mg BID-WM HAM Administration Clopidogrel Bisulfate 75 mg 08/22/19 09:00 08/22/19 10:33 Plavix PO 75 mg DAILY HAM Administration Finasteride 5 mg 08/21/19 21:00 08/21/19 20:27 Proscar PO 5 mg HS HAM Administration Gabapentin 600 mg 08/21/19 21:00 08/21/19 20:27 Neurontin PO 600 mg HS HAM Administration Guaifenesin 600 mg 08/21/19 21:00 08/22/19 10:33 Mucinex PO 600 mg BID HAM Administration Cefepime HCl 2 gm/ Sodium 100 mls @ 200 mls/hr 08/21/19 10:00 08/22/19 10:33 Chloride IVPB 100 mls 1000,2200 HAM Administration Levofloxacin 750 mg/ Device 150 mls @ 100 mls/hr 08/22/19 08:00 08/22/19 08: 44 IVPB 150 mls 0800 HAM Administration Levothyroxine Sodium 25 mcg 08/22/19 09:00 08/22/19 10:32 Synthroid PO 25 mcg DAILY HAM Administration Melatonin 9 mg 08/21/19 21:00 08/21/19 20:27 Melatonin PO 9 mg HS HAM Administration Tamsulosin HCl 0.4 mg 08/21/19 21:00 08/21/19 20:27 Flomax PO 0.4 mg HS HAM Administration Zolpidem Tartrate 5 mg 08/21/19 18:58 08/21/19 20:28 Ambien PO 5 mg HS PRN Administration Insomnia - Exam General Appearance: awake alert General - other findings: obese Eye: anicteric sclera ENT: normocephalic atraumatic, moist mucosa Neck: symmetric, no JVD Heart: RRR Respiratory: no wheezes, no ronchi, normal chest expansion, no tachypnea Respiratory - other findings: Right base crackles as well transmitted sound in other zones Gastrointestinal: soft, non-tender, non-distended, normal bowel sounds Extremities: no cyanosis, no edema Neurological: cranial nerve grossly intact, no new deficit Psychiatric: A&O x 3 Hosp A/P (1) Acute respiratory failure with hypoxia Code(s): J96.01 - ACUTE RESPIRATORY FAILURE WITH HYPOXIA Status: Acute (2) Community acquired bacterial pneumonia Code(s): J15.9 - UNSPECIFIED BACTERIAL PNEUMONIA Status: Acute (3) Quadriparesis Code(s): G82.50 - QUADRIPLEGIA, UNSPECIFIED Status: Acute (4) Hyponatremia Code(s): E87.1 - HYPO-OSMOLALITY AND HYPONATREMIA Status: Acute (5) Ventricular tachycardia Code(s): I47.2 - VENTRICULAR TACHYCARDIA Status: Acute (6) CAD (coronary artery disease) Code(s): I25.10 - ATHSCL HEART DISEASE OF [place] CORONARY ARTERY W/O ANG PCTRS Status: Chronic (7) Chronic anticoagulation Code(s): Z79.01 - [facility] (CURRENT) USE OF ANTICOAGULANTS Status: Chronic (8) Chronic systolic CHF (congestive heart failure) Code(s): I50.22 - CHRONIC SYSTOLIC (CONGESTIVE) HEART FAILURE Status: Chronic (9) HTN (hypertension) Code(s): I10 - ESSENTIAL (PRIMARY) HYPERTENSION Status: Chronic Qualifiers: (10) Ischemic cardiomyopathy Code(s): I25.5 - ISCHEMIC CARDIOMYOPATHY Status: Chronic (11) Multiple sclerosis Code(s): G35 - MULTIPLE SCLEROSIS Status: Chronic (12) NSVT (nonsustained ventricular tachycardia) Code(s): I47.2 - VENTRICULAR TACHYCARDIA Status: Chronic (13) Neurogenic bladder Code(s): N31.9 - NEUROMUSCULAR DYSFUNCTION OF [place], UNSPECIFIED Status: Chronic (14) Obesity (BMI 30.0-34.9) Code(s): E66.9 - OBESITY, UNSPECIFIED Status: Chronic (15) PAF (paroxysmal atrial fibrillation) Code(s): I48.0 - PAROXYSMAL ATRIAL FIBRILLATION Status: Chronic (16) SIADH (syndrome of inappropriate ADH production) Status: Acute - Plan Add IV vancomycin to cefepime and levaquin Start 1200 fluid restriction Continue chest physiotherapy, mucolytics and bronchodilators NT suction for respiratory culture Continue other supportive care. Wean oxygen as tolerated.
[2019-08-22] MEDS: Furosemide 40 MG/4 ML VIAL SLOW IVP SCH (13:52)
--- NOTE | 2019-08-22 15:32 | CON ---
DATE OF CONSULTATION: 08/22/2019 CONSULTING PHYSICIAN: Nilsa Parsons Obi, MD. REASON FOR CONSULTATION: Pneumonia. This encompassed 70 minutes time, of that time, greater than 50% spent with the patient and/or the patient's unit in the hospital. HISTORY OF PRESENT ILLNESS: The patient is a 74-year-old male, who re-presented to the hospital on August 21, after just recently being hospitalized for supposed pneumonia. He came in for worsening shortness of breath. He was found to be hypoxic. He has been started back on antibiotics with hospital-acquired coverage. He has had no fever to speak of. He does have a cough. PAST MEDICAL HISTORY: 1. Multiple sclerosis. 2. Chronic systolic heart failure with EF of about 20% per echo in 2018. 3. Myocardial infarction x3. 4. Neurogenic bladder. 5. Hyperlipidemia. 6. Hypertension. 7. Bed-bound status. 8. Chronically anticoagulated for atrial fibrillation. 9. Nonsustained ventricular tachycardia. 10. Coronary artery disease. PAST SURGICAL HISTORY: 1. Coronary artery bypass grafting surgery. 2. Pacemaker placement. 3. Cardiac catheterization. 4. Tonsillectomy. 5. Adenoidectomy. 6. Left knee surgery. 7. Left second toe surgery. 8. Vasectomy. 9. Sinus surgery. SOCIAL HISTORY: The patient quit smoking many years ago. Does not consume alcohol. Does not use illicit drugs. ALLERGIES: IV CONTRAST. MEDICATIONS: Prior to admission; 1. Albuterol. 2. Lasix. 3. Nuvigil. 4. Eliquis. 5. Vitamin B complex. 6. Calcium carbonate. 7. Cholecalciferol. 8. Robitussin. 9. Proscar. 10. Gabapentin. 11. Levothyroxine. 12. Loratadine. 13. Multivitamin. 14. Ambien. 15. Omnicef. 16. Acetaminophen. 17. Amiodarone. 18. Lipitor. 19. Carvedilol. 20. Plavix. 21. Mucinex. 22. Potassium chloride. 23. Flomax. REVIEW OF SYSTEMS: Remarkable bed-bound status, cough, congestion. PHYSICAL EXAMINATION: VITAL SIGNS: Temperature 97.8, pulse 90, blood pressure 132/64, O2 saturation 97% on 3 L. The patient is sitting up in bed, does not appear to be in any distress HEENT: Pupils reactive. Sclerae anicteric. Oropharynx class III Mallampati airway. NECK: No adenopathy or JVD. He has profound supraclavicular fat pads. LUNGS: Crackles in both bases. No wheezing. CARDIOVASCULAR: S1-S2. Regular. There is a pacemaker palpable in left upper quadrant chest. ABDOMEN: Soft, obese, and nontender. EXTREMITIES: No clubbing, cyanosis, or edema. LABORATORY DATA: Sodium 124, potassium 4.3, chloride 87, CO2 of 30, BUN 11, creatinine 0.8, and glucose 106. White count 7.7, hematocrit 46.1, and platelet count 107. His BNP level was 1028. ASSESSMENT: The patient presents with hypoxemia and pulmonary infiltrates on the x-ray. Given his hyponatremia and low systolic function, I would favor this being acute on chronic systolic heart failure rather than a recurrence of pneumonia. RECOMMENDATIONS: I would recommend fluid restricting and diuresing the patient. I would recommend scaling back the antibiotics. I would recommend Cardiology consultation, if not already obtained. Job ID: [id number]
[2019-08-22] MEDS: Finasteride 5 MG TAB PO SCH (21:29)
[2019-08-22] MEDS: Melatonin 3 MG TAB PO SCH (21:29)
[2019-08-22] MEDS: Atorvastatin Calcium 20 MG TAB PO SCH (21:29)
[2019-08-22] MEDS: Tamsulosin HCl 0.4 MG CAP PO SCH (21:29)
[2019-08-22] MEDS: Gabapentin 300 MG CAP PO SCH (21:29)
[2019-08-22] MEDS: Vancomycin HCl 1.75 GM in Sodium Chloride 0.9% 500 ML IVPB SCH (23:55)
[2019-08-23] MEDS: Albuterol Sulfate 1.25 MG/3 ML NEB NEB SCH ×4 (07:29→19:00)
[2019-08-23] MEDS: Clopidogrel Bisulfate 75 MG TAB PO SCH (08:07)
[2019-08-23] MEDS: Carvedilol 6.25 MG TAB PO SCH ×2 (08:08→21:37)
[2019-08-23] MEDS: Levothyroxine Sodium 25 MCG TAB PO SCH (08:08)
[2019-08-23] MEDS: Apixaban 5 MG TAB PO SCH ×2 (08:09→21:37)
[2019-08-23] MEDS: guaiFENesin ER 600 MG TAB PO SCH ×2 (08:09→21:37)
[2019-08-23] MEDS ORDERED: Furosemide 40 MG/4 ML VIAL SLOW IVP SCH (08:30)
[2019-08-23] MEDS: Cefepime 2 GM in Sodium Chloride 0.9% 100 ML IVPB SCH ×2 (09:42→21:51)
[2019-08-23] MEDS ORDERED: Polyethylene Glycol 3350 17 GM Packet PO PRN (11:20)
[2019-08-23] MEDS: Vancomycin HCl 1.75 GM in Sodium Chloride 0.9% 500 ML IVPB SCH (12:14)
[2019-08-23] MEDS: Furosemide 40 MG/4 ML VIAL SLOW IVP SCH ×2 (13:33→15:39)
--- NOTE | 2019-08-23 14:49 | PRG ---
DATE OF SERVICE: 08/23/2019 SUBJECTIVE: He is actually feeling better after being diuresed some yesterday. OBJECTIVE: VITAL SIGNS: His temperature is 98.6, pulse 90, respirations 16, O2 saturation 97% on room air, blood pressure 107/48. HEAD AND NECK: Unremarkable. LUNGS: Slightly diminished breath sounds at bases. CARDIAC: S1 and S2. Regular. ABDOMEN: Soft. EXTREMITIES: Trace edema. IMAGING STUDIES: His echo showed an EF of 25%, and he is in atrial fibrillation. ASSESSMENT: 1. [id number] systolic heart failure. 2. I doubt the patient has pneumonia. RECOMMENDATIONS: I am going to go ahead and stop his antibiotic coverage except for the cefepime. He is on IV Lasix. His labs are being monitored. We will check periodically. Job ID: [id number]
--- NOTE | 2019-08-23 14:58 | PDOC.HOSPP ---
- Subjective Encounter Date: 08/23/19 Encounter Time: 09:57 Subjective: 74 y/o male with MS associated with chronic debility/bedbound status recently discharged from Hospital following treatment for pneumonia on oral antibiotics now readmitted with worsening SOB associated with Hypoxia and worsening weakness. CXR showed persistent R lower lobe infiltrates. Denied Fever. Started on IV antibiotics, bronchodilators and oxygen with improvement. Started on lasix for acute CHF. Echo showed EF 25-30. No new problem. remained afebrile. - Objective Vital Signs & Weight: Vital Signs (12 hours) Temp Pulse Resp BP Pulse Ox 08/23/19 12:00 98.6 F 92 16 107/48 L 97 08/23/19 10:41 78 16 08/23/19 08:04 78 20 103/55 L 97 08/23/19 08:00 97 08/23/19 07:30 97 08/23/19 07:29 88 16 08/23/19 07:20 88 16 08/23/19 03:02 97.8 F 78 16 100/57 L 95 Weight Admit Weight 247 lb 12.8 oz Weight 247 lb 6 oz I&O: 08/22/19 08/23/19 08/24/19 06:59 06:59 06:59 Intake Total 340 2220 Output Total 1300 Balance 340 920 Result Diagrams: 08/22/19 05:31 08/22/19 05:31 Hospitalist ROS - Medication Medications: Active Medications Generic Name Dose Route Start Last Admin Trade Name Freq PRN Reason Stop Dose Admin Albuterol Sulfate 1.25 mg 08/21/19 11:00 08/23/19 10:41 Albuterol Sulfate NEB 1.25 mg QID-RT HAM Administration Apixaban 5 mg 08/21/19 21:00 08/23/19 08:09 Eliquis PO 5 mg BID HAM Administration Atorvastatin Calcium 20 mg 08/21/19 21:00 08/22/19 21:29 Lipitor PO 20 mg HS HAM Administration Carvedilol 12.5 mg 08/21/19 17:00 08/23/19 08:08 Coreg PO 12.5 mg BID-WM HAM Administration Clopidogrel Bisulfate 75 mg 08/22/19 09:00 08/23/19 08:07 Plavix PO 75 mg DAILY HAM Administration Finasteride 5 mg 08/21/19 21:00 08/22/19 21:29 Proscar PO 5 mg HS HAM Administration Furosemide 40 mg 08/22/19 14:00 08/23/19 13:33 Lasix SLOW IVP Not Given 1400 HAM Gabapentin 600 mg 08/21/19 21:00 08/22/19 21:29 Neurontin PO 600 mg HS HAM Administration Guaifenesin 600 mg 08/21/19 21:00 08/23/19 08:09 Mucinex PO 600 mg BID HAM Administration Cefepime HCl 2 gm/ Sodium 100 mls @ 200 mls/hr 08/21/19 10:00 08/23/19 09:42 Chloride IVPB 100 mls 1000,2200 HAM Administration Levothyroxine Sodium 25 mcg 08/22/19 09:00 08/23/19 08:08 Synthroid PO 25 mcg DAILY HAM Administration Melatonin 9 mg 08/21/19 21:00 08/22/19 21:29 Melatonin PO 9 mg HS HAM Administration Polyethylene Glycol 17 gm 08/23/19 11:20 08/23/19 12:14 Miralax PO 17 gm BIDPRN PRN Administration Constipation Tamsulosin HCl 0.4 mg 08/21/19 21:00 08/22/19 21:29 Flomax PO 0.4 mg HS HAM Administration Zolpidem Tartrate 5 mg 08/21/19 18:58 08/21/19 20:28 Ambien PO 5 mg HS PRN Administration Insomnia - Exam General Appearance: awake alert Eye: anicteric sclera ENT: normocephalic atraumatic Neck: no JVD Heart: irregular, murmur present Respiratory: no ronchi, normal chest expansion, no tachypnea Respiratory - other findings: Bilateral crakles/transmitted especially right base Gastrointestinal: soft, non-tender, non-distended, normal bowel sounds Extremities: no edema Neurological: cranial nerve grossly intact, no new deficit Psychiatric: A&O x 3 Hosp A/P (1) Acute respiratory failure with hypoxia Code(s): J96.01 - ACUTE RESPIRATORY FAILURE WITH HYPOXIA Status: Acute (2) Acute on chronic systolic (congestive) heart failure Code(s): I50.23 - ACUTE ON CHRONIC SYSTOLIC (CONGESTIVE) HEART FAILURE Status : Acute (3) Community acquired bacterial pneumonia Code(s): J15.9 - UNSPECIFIED BACTERIAL PNEUMONIA Status: Acute (4) Quadriparesis Code(s): G82.50 - QUADRIPLEGIA, UNSPECIFIED Status: Acute (5) Hyponatremia Code(s): E87.1 - HYPO-OSMOLALITY AND HYPONATREMIA Status: Acute (6) Ventricular tachycardia Code(s): I47.2 - VENTRICULAR TACHYCARDIA Status: Acute (7) CAD (coronary artery disease) Code(s): I25.10 - ATHSCL HEART DISEASE OF [place] CORONARY ARTERY W/O ANG PCTRS Status: Chronic (8) Chronic anticoagulation Code(s): Z79.01 - SCALE ADJUSTER (CURRENT) USE OF ANTICOAGULANTS Status: Chronic (9) HTN (hypertension) Code(s): I10 - ESSENTIAL (PRIMARY) HYPERTENSION Status: Chronic Qualifiers: (10) Ischemic cardiomyopathy Code(s): I25.5 - ISCHEMIC CARDIOMYOPATHY Status: Chronic (11) Multiple sclerosis Code(s): G35 - MULTIPLE SCLEROSIS Status: Chronic (12) NSVT (nonsustained ventricular tachycardia) Code(s): I47.2 - VENTRICULAR TACHYCARDIA Status: Chronic (13) Neurogenic bladder Code(s): N31.9 - NEUROMUSCULAR DYSFUNCTION OF [place], UNSPECIFIED Status: Chronic (14) Obesity (BMI 30.0-34.9) Code(s): E66.9 - OBESITY, UNSPECIFIED Status: Chronic (15) PAF (paroxysmal atrial fibrillation) Code(s): I48.0 - PAROXYSMAL ATRIAL FIBRILLATION Status: Chronic (16) SIADH (syndrome of inappropriate ADH production) Status: Acute - Plan De escalate antibiotic with negative procalcitonin Continue IV lasix and monitor renal function and electrolytes Continue 1200 fluid restriction Continue chest physiotherapy, mucolytics and bronchodilators Await respiratory culture Continue other supportive care. Wean oxygen as tolerated. Appreciate Pulm input
[2019-08-23] MEDS: Melatonin 3 MG TAB PO SCH (21:36)
[2019-08-23] MEDS: Gabapentin 300 MG CAP PO SCH (21:36)
[2019-08-23] MEDS: Atorvastatin Calcium 20 MG TAB PO SCH (21:36)
[2019-08-23] MEDS: Tamsulosin HCl 0.4 MG CAP PO SCH (21:37)
[2019-08-23] MEDS: Finasteride 5 MG TAB PO SCH (21:38)
[2019-08-24 05:21] LABS: Anion Gap 12 mmol/L (10-20); BUN (Urea Nitrogen) 11 mg/dL (8.4-25.7); Calc. Creatinine Clearance 116 mL/min (70-130); Calcium 8.7 mg/dL (7.8-10.44); Carbon Dioxide 30 mmol/L (23-31); Chloride 88 mmol/L (98-107); Estimated GFR-MDRD 82; Glucose 110 mg/dL (83-110); Potassium 4.7 mmol/L (3.5-5.1); Sodium 125 mmol/L (136-145)
[2019-08-24] MEDS: Furosemide 40 MG/4 ML VIAL SLOW IVP SCH ×2 (05:51→16:39)
[2019-08-24] MEDS: Albuterol Sulfate 1.25 MG/3 ML NEB NEB SCH ×4 (07:17→19:31)
[2019-08-24] MEDS: Carvedilol 6.25 MG TAB PO SCH ×2 (09:58→20:45)
[2019-08-24] MEDS: Apixaban 5 MG TAB PO SCH ×2 (09:59→20:44)
[2019-08-24] MEDS: Clopidogrel Bisulfate 75 MG TAB PO SCH (09:59)
[2019-08-24] MEDS: guaiFENesin ER 600 MG TAB PO SCH ×2 (09:59→20:46)
[2019-08-24] MEDS: Levothyroxine Sodium 25 MCG TAB PO SCH (10:06)
[2019-08-24] MEDS: Cefepime 2 GM in Sodium Chloride 0.9% 100 ML IVPB SCH (10:07)
--- NOTE | 2019-08-24 10:35 | PRG ---
DATE OF SERVICE: 08/24/2019 SUBJECTIVE: The patient is doing reasonably well. He is currently sleeping. OBJECTIVE: VITAL SIGNS: Temperature is 97.8, pulse 95, respirations 18, O2 saturation 96% on 2 L, and blood pressure 108/59. HEENT: Unremarkable. NECK: No adenopathy or JVD. LUNGS: Clear anteriorly. CARDIAC: S1 and S2. Regular. ABDOMEN: Soft. EXTREMITIES: No edema. LABORATORY DATA: Sodium is 125, BUN 11, creatinine 0.9, and glucose 110. ASSESSMENT: Acute on chronic systolic heart failure. RECOMMENDATION: 1. Continue diuresis. 2. Would suggest stopping the antibiotics. I doubt he has pneumonia. 3. No further Pulmonary recommendations and we will sign off. Job ID: [id number]
--- NOTE | 2019-08-24 16:28 | PDOC.HOSPP ---
- Subjective Encounter Date: 08/24/19 Encounter Time: 09:26 Subjective: 74 y/o male with MS associated with chronic debility/bedbound status recently discharged from Hospital following treatment for pneumonia on oral antibiotics now readmitted with worsening SOB associated with Hypoxia and worsening weakness. CXR showed persistent R lower lobe infiltrates. Denied Fever. Started on IV antibiotics, bronchodilators and oxygen with improvement. Also started on lasix for acute CHF. Echo showed EF 25-30. Feeling better. Still on oxygen. - Objective Vital Signs & Weight: Vital Signs (12 hours) Temp Pulse Resp BP Pulse Ox 08/24/19 11:06 97.5 F L 85 18 99/50 L 99 08/24/19 10:22 79 16 94 L 08/24/19 07:55 97.8 F 95 18 108/59 L 94 L 08/24/19 07:17 81 16 95 08/24/19 07:00 81 16 Weight Admit Weight 247 lb 12.8 oz Weight 248 lb I&O: 08/23/19 08/24/19 08/25/19 06:59 06:59 06:59 Intake Total 2220 1360 Output Total 1300 2950 Balance 920 -1590 Result Diagrams: 08/22/19 05:31 08/24/19 03:55 Hospitalist ROS - Medication Medications: Active Medications Generic Name Dose Route Start Last Admin Trade Name Benjiq PRN Reason Stop Dose Admin Albuterol Sulfate 1.25 mg 08/21/19 11:00 08/24/19 14:25 Albuterol Sulfate NEB 1.25 mg QID-RT HAM Administration Apixaban 5 mg 08/21/19 21:00 08/24/19 09:59 Eliquis PO 5 mg BID HAM Administration Atorvastatin Calcium 20 mg 08/21/19 21:00 08/23/19 21:36 Lipitor PO 20 mg HS HAM Administration Carvedilol 12.5 mg 08/23/19 21:00 08/24/19 09:58 Coreg PO 12.5 mg BID HAM Administration Clopidogrel Bisulfate 75 mg 08/22/19 09:00 08/24/19 09:59 Plavix PO 75 mg DAILY HAM Administration Finasteride 5 mg 08/21/19 21:00 08/23/19 21:38 Proscar PO 5 mg HS HAM Administration Gabapentin 600 mg 08/21/19 21:00 08/23/19 21:36 Neurontin PO 600 mg HS HAM Administration Guaifenesin 600 mg 08/21/19 21:00 08/24/19 09:59 Mucinex PO 600 mg BID HAM Administration Levothyroxine Sodium 25 mcg 08/22/19 09:00 08/24/19 10:06 Synthroid PO 25 mcg DAILY HAM Administration Melatonin 9 mg 08/21/19 21:00 08/23/19 21:36 Melatonin PO 9 mg HS HAM Administration Polyethylene Glycol 17 gm 08/23/19 11:20 08/23/19 12:14 Miralax PO 17 gm BIDPRN PRN Administration Constipation Tamsulosin HCl 0.4 mg 08/21/19 21:00 08/23/19 21:37 Flomax PO 0.4 mg HS HAM Administration Zolpidem Tartrate 5 mg 08/21/19 18:58 08/21/19 20:28 Ambien PO 5 mg HS PRN Administration Insomnia - Exam General Appearance: awake alert Eye: anicteric sclera ENT: normocephalic atraumatic, moist mucosa Neck: supple, no JVD Heart: irregular Respiratory: no ronchi, normal chest expansion, no tachypnea Respiratory - other findings: fair air entry with scattered transmitted sound more on the right Gastrointestinal: soft, non-tender, non-distended, normal bowel sounds Extremities: no cyanosis Neurological: cranial nerve grossly intact, no new deficit Psychiatric: A&O x 3 Hosp A/P (1) Acute respiratory failure with hypoxia Code(s): J96.01 - ACUTE RESPIRATORY FAILURE WITH HYPOXIA Status: Acute (2) Acute on chronic systolic (congestive) heart failure Code(s): I50.23 - ACUTE ON CHRONIC SYSTOLIC (CONGESTIVE) HEART FAILURE Status : Acute (3) Community acquired bacterial pneumonia Code(s): J15.9 - UNSPECIFIED BACTERIAL PNEUMONIA Status: Ruled-out (4) Quadriparesis Code(s): G82.50 - QUADRIPLEGIA, UNSPECIFIED Status: Acute (5) Hyponatremia Code(s): E87.1 - HYPO-OSMOLALITY AND HYPONATREMIA Status: Acute (6) Ventricular tachycardia Code(s): I47.2 - VENTRICULAR TACHYCARDIA Status: Acute (7) CAD (coronary artery disease) Code(s): I25.10 - ATHSCL HEART DISEASE OF [place] CORONARY ARTERY W/O ANG PCTRS Status: Chronic (8) Chronic anticoagulation Code(s): Z79.01 - JAIL (CURRENT) USE OF ANTICOAGULANTS Status: Chronic (9) HTN (hypertension) Code(s): I10 - ESSENTIAL (PRIMARY) HYPERTENSION Status: Chronic Qualifiers: (10) Ischemic cardiomyopathy Code(s): I25.5 - ISCHEMIC CARDIOMYOPATHY Status: Chronic (11) Multiple sclerosis Code(s): G35 - MULTIPLE SCLEROSIS Status: Chronic (12) NSVT (nonsustained ventricular tachycardia) Code(s): I47.2 - VENTRICULAR TACHYCARDIA Status: Chronic (13) Neurogenic bladder Code(s): N31.9 - NEUROMUSCULAR DYSFUNCTION OF [place], UNSPECIFIED Status: Chronic (14) Obesity (BMI 30.0-34.9) Code(s): E66.9 - OBESITY, UNSPECIFIED Status: Chronic (15) PAF (paroxysmal atrial fibrillation) Code(s): I48.0 - PAROXYSMAL ATRIAL FIBRILLATION Status: Chronic (16) SIADH (syndrome of inappropriate ADH production) Status: Acute - Plan DC antibiotics as Procalcitonin and tracheal aspirate cultures are unremarkable. Continue IV lasix and monitor renal function and electrolytes Continue 1200 fluid restriction Continue mucolytics and bronchodilators Continue other supportive care. Consult cardiology Wean oxygen as tolerated. Appreciate Pulm input
--- NOTE | 2019-08-24 17:15 | CON ---
DATE OF CONSULTATION: 08/24/2019 REASON FOR CONSULTATION: Congestive heart failure systolic, acute on chronic. HISTORY OF PRESENT ILLNESS: Mr. Shravan Redman is a very pleasant 74-year-old gentleman. The patient has a long cardiac history. The patient initially presented to us here at [facility] with an acute inferior myocardial infarction associated with ventricular fibrillation. The patient was taken to the label tacker on an emergency basis and was found to have an occluded saphenous vein graft to the right coronary artery with an occluded [place] right coronary artery. An attempt was made to open this vessel. It was successfully wired and crossed with a wire. Balloon dilatations and mechanical thrombectomy were done, but despite those efforts as well as anticoagulants and antiplatelet drugs, they continued to thrombose and ultimately, it was decided that it would not be feasible to keep the graft open. The patient had multiple episodes of ventricular fibrillation during that admission. The patient had repeat cardiac catheterization done in November 2017. He was found to have multivessel coronary artery disease. He had a patent SEARS to the mid LAD, patent vein graft to distal LAD, patent radial to high diagonal, small circumflex without obstruction, right coronary with patent saphenous vein graft, diffuse thrombus with ANGIE grade 2 flow. Medical therapy was only option. The patient was unable to keep followup in our office. He states that he could not be transported without an ambulance. Therefore, he does not come for followups in the last couple of years. He is somewhat unsure about his medication. He does have some home health and a physician that also checks on him at home, Dr. Taras Boyd. The patient was admitted to the hospital with progressive difficulty breathing and peripheral edema. On this admission, initially it was thought to be pneumonia, but it appears it is likely congestive heart failure. MEDICATIONS: At home included; 1. Atorvastatin. 2. Potassium. 3. Tamsulosin. 4. Carvedilol. He thinks he is taking 12.5 twice a day. 5. Apixaban 5 mg twice a day. 6. Amiodarone. It is unclear if he is taking this as listed twice a day, but they are unsure about the medicine. The patient is not taking LUIZA inhibitor or angiotensin receptor migue. They are not taking any lisinopril or any similar medicine. REVIEW OF SYSTEMS: CONSTITUTIONAL: Positive for weakness and fatigue. The patient is bed-bound now due to neurologic disease. VISION: No changes. HEARING: No changes. PULMONARY: No cough or wheezing. GASTROINTESTINAL: No nausea, vomiting, or diarrhea. SKIN: No rashes. NEUROLOGIC: No unilateral weakness or numbness. PSYCHIATRIC: No unusual depression or anxiety. All things considered, he is dealing with his illnesses relatively well, but he is unable to really even get up out of bed much rather than sitting briefly. He is able not even to get up in a wheelchair. FAMILY HISTORY: Noncontributory. PAST SURGICAL HISTORY: Previous bypass. PHYSICAL EXAMINATION: GENERAL: This is a pleasant gentleman, 6 feet 2 inches tall and 248 pounds. EYES: Sclerae nonicteric. Mouth, mucous membranes moist. NECK: Supple. No lymphadenopathy. LUNGS: Clear. No wheezing, rales, or rhonchi. CARDIAC: Normal S1. Normal S2. There is no murmur, rub, or gallop, but heart sounds are distant. ABDOMEN: Soft and nontender. EXTREMITIES: No clubbing or cyanosis. There is a [id number] peripheral edema. PERTINENT LABORATORY DATA: Sodium is low at 123 and creatinine is 0.9. Echocardiogram was done showing an ejection fraction severely depressed at 25% to 30%. Mild mitral regurgitation. At that time, the heart rhythm looks somewhat irregular. Other times, it looks like the patient is in sinus rhythm. ASSESSMENT: 1. Congestive heart failure, acute on chronic, advanced. 2. Hyponatremia, indicative of severely depressed left ventricular function and advanced heart failure. 3. Coronary artery disease, medical therapy is the only option. 4. Generalized debility due to neurologic disorder. 5. Previous defibrillator. He says he has not checked in a year. He said "I did not know that I was supposed to do that.". 6. Probable underlying atrial fibrillation. PLAN: 1. We will begin Entresto. 2. Continue amiodarone. We will go ahead and go to 200 mg twice a day to see if we can maintain normal rhythm. 3. Continue statin. 4. Continue Plavix. 5. Continue Eliquis. 6. Reduce diuretic in view of the hyponatremia. 7. Continue carvedilol. Job ID: [id number]
[2019-08-24] MEDS: Atorvastatin Calcium 20 MG TAB PO SCH (20:44)
[2019-08-24] MEDS: Gabapentin 300 MG CAP PO SCH (20:45)
[2019-08-24] MEDS: Tamsulosin HCl 0.4 MG CAP PO SCH (20:46)
[2019-08-24] MEDS: Amiodarone 200 MG TAB PO SCH (20:46)
[2019-08-24] MEDS: Melatonin 3 MG TAB PO SCH (20:46)
[2019-08-24] MEDS: Finasteride 5 MG TAB PO SCH (20:46)
[2019-08-25] MEDS: Zolpidem Tartrate 5 MG TAB PO PRN ×2 (00:55→21:45)
[2019-08-25] MEDS: Furosemide 20 MG/2 ML VIAL SLOW IVP SCH ×2 (05:07→14:43)
[2019-08-25 05:14] LABS: Hemoglobin 14.2 g/dL (14.0-18.0); Mean Corpuscular HGB CONC 31.7 g/dL (32.0-36.0); Mean Corpuscular Hemoglobin 32.5 pg (27.0-31.0); Mean Platelet Volume 8.4 fL (7.4-10.4); Platelet Count 113 thou/uL (130-400); RBC Distribution Width 11.9 % (11.5-14.5); Red Blood Cell (RBC) Count 4.36 mill/uL (4.70-6.10)
[2019-08-25 05:26] LABS: Anion Gap 10 mmol/L (10-20); BUN (Urea Nitrogen) 13 mg/dL (8.4-25.7); Calc. Creatinine Clearance 136 mL/min (70-130); Calcium 9.1 mg/dL (7.8-10.44); Carbon Dioxide 34 mmol/L (23-31); Chloride 89 mmol/L (98-107); Estimated GFR-MDRD Greater than 90; Glucose 112 mg/dL (83-110); Potassium 3.7 mmol/L (3.5-5.1); Sodium 129 mmol/L (136-145)
[2019-08-25] MEDS: Albuterol Sulfate 1.25 MG/3 ML NEB NEB SCH ×4 (07:53→19:05)
[2019-08-25] MEDS: Clopidogrel Bisulfate 75 MG TAB PO SCH (09:56)
[2019-08-25] MEDS: Apixaban 5 MG TAB PO SCH ×2 (09:56→21:42)
[2019-08-25] MEDS: Carvedilol 6.25 MG TAB PO SCH ×2 (09:56→21:43)
[2019-08-25] MEDS: Levothyroxine Sodium 25 MCG TAB PO SCH (09:56)
[2019-08-25] MEDS: Amiodarone 200 MG TAB PO SCH ×2 (09:57→21:44)
[2019-08-25] MEDS: guaiFENesin ER 600 MG TAB PO SCH ×2 (09:57→21:43)
--- NOTE | 2019-08-25 12:21 | PDOC.CPN ---
- Subjective Date: 08/25/19 Time: 07:30 Interval history: Mr. Redman is awake, feeling better this am, sitting up Continues to feel short of breath, but states his cough has improved. He is bed bound at home due to his MS, but has HH and PT services. States he does not have a [employer] home monitor, has not had his ICD checked in over 1 year. No overnight events on telemetry. - Review of Systems Respiratory: reports: cough, shortness of breath, exercise intolerance Cardiovascular: reports: edema, orthopnea Neurological: reports: weakness - Objective Allergies/Adverse Reactions: Allergies Allergy/AdvReac Type Severity Reaction Status Date / Time iodine Allergy Verified 09/13/16 03:27 Visit Medications: Current Medications Acetaminophen (Tylenol) 650 mg PO Q4H PRN PRN Reason: Headache/Fever/Mild Pain (1-3) Albuterol Sulfate (Albuterol Sulfate) 1.25 mg NEB QID-RT [facility] Last Admin: 08/25/19 11:01 Dose: 1.25 mg Albuterol Sulfate (Albuterol Sulfate) 1.25 mg NEB Q2H PRN PRN Reason: SOB &/or Wheezing Amiodarone HCl (Cordarone) 200 mg PO BID [facility] Last Admin: 08/25/19 09:57 Dose: 200 mg Apixaban (Eliquis) 5 mg PO BID [facility] Last Admin: 08/25/19 09:56 Dose: 5 mg Atorvastatin Calcium (Lipitor) 20 mg PO HS [facility] Last Admin: 08/24/19 20:44 Dose: 20 mg Bisacodyl (Dulcolax) 10 mg CO DAILYPRN PRN PRN Reason: Constipation Carvedilol (Coreg) 12.5 mg PO BID [facility] Last Admin: 08/25/19 09:56 Dose: 12.5 mg Clopidogrel Bisulfate (Plavix) 75 mg PO DAILY [facility] Last Admin: 08/25/19 09:56 Dose: 75 mg Finasteride (Proscar) 5 mg PO HS [facility] Last Admin: 08/24/19 20:46 Dose: 5 mg Furosemide (Lasix) 20 mg SLOW IVP 0600,1400 [facility] Last Admin: 08/25/19 05:07 Dose: 20 mg Gabapentin (Neurontin) 600 mg PO HS [facility] Last Admin: 08/24/19 20:45 Dose: 600 mg Guaifenesin (Mucinex) 600 mg PO BID [facility] Last Admin: 08/25/19 09:57 Dose: 600 mg Levothyroxine Sodium (Synthroid) 25 mcg PO DAILY [facility] Last Admin: 08/25/19 09:56 Dose: 25 mcg Loratadine (Claritin) 10 mg PO DAILYPRN PRN PRN Reason: Allergies Melatonin (Melatonin) 9 mg PO HS [facility] Last Admin: 08/24/19 20:46 Dose: 9 mg Polyethylene Glycol (Miralax) 17 gm PO BIDPRN PRN PRN Reason: Constipation Last Admin: 08/23/19 12:14 Dose: 17 gm Sacubitril/Valsartan (Entresto 24 Mg-26 Mg Tablet) 1 tab PO BID [facility] Last Admin: 08/25/19 09:57 Dose: 1 tab Senna/Docusate Sodium (Senokot S) 2 tab PO BIDPRN PRN PRN Reason: Constipation Tamsulosin HCl (Flomax) 0.4 mg PO HS [facility] Last Admin: 08/24/19 20:46 Dose: 0.4 mg Zolpidem Tartrate (Ambien) 5 mg PO HS PRN PRN Reason: Insomnia Last Admin: 08/25/19 00:55 Dose: 5 mg Vital Signs & Weight: Vital Signs Temp Pulse Pulse Pulse Pulse Resp BP 08/25/19 11:01 58 L 20 08/25/19 10:55 97.9 F 90 19 08/25/19 10:31 79 69 44 L 103/54 L 08/25/19 09:58 97.9 F 89 12 08/25/19 07:53 80 20 08/25/19 04:00 98.0 F 66 18 BP BP BP Pulse Ox 08/25/19 11:01 94 L 08/25/19 10:55 104/51 L 94 L 08/25/19 10:31 109/57 L 104/51 L 08/25/19 09:58 109/57 L 94 L 08/25/19 07:53 93 L 08/25/19 04:00 107/53 L 95 Admit Weight 247 lb 12.8 oz Weight 246 lb - CHADS-VASc Congestive heart failure: 1 Hypertension: 1 Age 65-74: 1 Vascular disease: 1 Risk Score: 4 - Quality Measures Condition: Atrial Fibrillation/Flutter (hx or current), Coronary Artery Disease , Heart Failure CV meds: Beta Zuleima: Yes, LUIZA/ARB: Yes, Statin: Yes, Anticoagulant: Yes - Physical Exam General: no apparent distress Cardiac: regular rate and rhythm (Distat heart sounds), no murmur, S1/S2 Lungs: clear to auscultation, normal breath sounds, no wheezes, scattered rhonchi Abdomen: active bowel sounds, soft, non-tender Extremities: 1+ LE edema Skin: clear - Labs Result Diagrams: 08/25/19 04:55 08/25/19 04:55 Troponin/CKMB Troponin I Less than 0.010 ng/mL (< 0.028) 08/21/19 03:10 - EKG Interpretation Status: report reviewed by me EKG Method: Telemetry (Vpaced, UL AFib) - Problem (1) Persistent atrial fibrillation Code(s): I48.19 - OTHER PERSISTENT ATRIAL FIBRILLATION Assessment and Plan: ICD interrogation shows persistent AFib since early July, episode ongoing. Increase amiodarone, continue Eliquis. Would likely benefit from jehovah's witness of SR. (2) Hyponatremia Code(s): E87.1 - HYPO-OSMOLALITY AND HYPONATREMIA Assessment and Plan: Chronic. Improved on BMP today, now 129. (3) CAD (coronary artery disease) Code(s): I25.10 - ATHSCL HEART DISEASE OF [place] CORONARY ARTERY W/O ANG PCTRS Qualifiers: Coronary Disease-Associated Artery/Lesion type: bypass graft [place] vs. transplanted heart: [place] heart Associated angina: without angina Qualified Code(s): I25.810 - Atherosclerosis of coronary artery bypass graft(s) without angina pectoris Assessment and Plan: Continue medical therapy. (4) Chronic systolic CHF (congestive heart failure) Code(s): I50.22 - CHRONIC SYSTOLIC (CONGESTIVE) HEART FAILURE Assessment and Plan: Acute on chronic, recent echocardiogram showed EF now severely depressed at 25- 30%. BNP 1028. Started on Entresto yesterday, will attempt to titrate up tomorrow, BP remains variable. Continue carvedilol. BMP stable, Na+ improved, continue diuresis. (5) HTN (hypertension) Code(s): I10 - ESSENTIAL (PRIMARY) HYPERTENSION Qualifiers: Hypertension type: essential hypertension (6) Ischemic cardiomyopathy Code(s): I25.5 - ISCHEMIC CARDIOMYOPATHY (7) Multiple sclerosis Code(s): G35 - MULTIPLE SCLEROSIS (8) AICD (automatic cardioverter/defibrillator) present Code(s): Z95.810 - PRESENCE OF AUTOMATIC (IMPLANTABLE) CARDIAC DEFIBRILLATOR Assessment and Plan: Normal function per interrogation, total LABORATORY SAMPLE CARRIER 10.6%. Optivol elevated at 80, thoracic impedance low. - Assessment/Plan Assessment/Plan: Dr. Calvin to see tomorrow. Trend labs.
--- NOTE | 2019-08-25 13:11 | PDOC.HOSPP ---
- Subjective Encounter Date: 08/25/19 Encounter Time: 09:09 Subjective: 74 y/o male with MS associated with chronic debility/bedbound status recently discharged from Hospital following treatment for pneumonia on oral antibiotics now readmitted with worsening SOB associated with Hypoxia and worsening weakness. CXR showed persistent R lower lobe infiltrates. Denied Fever. Initially started on IV antibiotics, bronchodilators and oxygen with improvement for pneumonia but later on lasix for acute CHF as CHF exacerbation seem more plausible with unremarkable procalcitonin and elevated BNP and antibiotics discontinued. Echo showed EF 25-30. Feeling better. Still on oxygen. - Objective Vital Signs & Weight: Vital Signs (12 hours) Temp Pulse Pulse Pulse Pulse Resp BP 08/25/19 11:01 58 L 20 08/25/19 10:55 97.9 F 90 19 08/25/19 10:31 79 69 44 L 103/54 L 08/25/19 09:58 97.9 F 89 12 08/25/19 07:53 80 20 08/25/19 04:00 98.0 F 66 18 BP BP BP Pulse Ox 08/25/19 11:01 94 L 08/25/19 10:55 104/51 L 94 L 08/25/19 10:31 109/57 L 104/51 L 08/25/19 09:58 109/57 L 94 L 08/25/19 07:53 93 L 08/25/19 04:00 107/53 L 95 Weight Admit Weight 247 lb 12.8 oz Weight 246 lb I&O: 08/24/19 08/25/19 08/26/19 06:59 06:59 06:59 Intake Total 1360 1170 Output Total 2950 2660 Balance -1590 -1490 Result Diagrams: 08/25/19 04:55 08/25/19 04:55 Hospitalist ROS - Medication Medications: Active Medications Generic Name Dose Route Start Last Admin Trade Name Freq PRN Reason Stop Dose Admin Albuterol Sulfate 1.25 mg 08/21/19 11:00 08/25/19 11:01 Albuterol Sulfate NEB 1.25 mg QID-RT [facility] Administration Amiodarone HCl 200 mg 08/24/19 21:00 08/25/19 09:57 Cordarone PO 200 mg BID [facility] Administration Apixaban 5 mg 08/21/19 21:00 08/25/19 09:56 Eliquis PO 5 mg BID [facility] Administration Atorvastatin Calcium 20 mg 08/21/19 21:00 08/24/19 20:44 Lipitor PO 20 mg HS [facility] Administration Carvedilol 12.5 mg 08/23/19 21:00 08/25/19 09:56 Coreg PO 12.5 mg BID [facility] Administration Clopidogrel Bisulfate 75 mg 08/22/19 09:00 08/25/19 09:56 Plavix PO 75 mg DAILY [facility] Administration Finasteride 5 mg 08/21/19 21:00 08/24/19 20:46 Proscar PO 5 mg HS [facility] Administration Furosemide 20 mg 08/25/19 06:00 08/25/19 05:07 Lasix SLOW IVP 20 mg 0600,1400 [facility] Administration Gabapentin 600 mg 08/21/19 21:00 08/24/19 20:45 Neurontin PO 600 mg HS [facility] Administration Guaifenesin 600 mg 08/21/19 21:00 08/25/19 09:57 Mucinex PO 600 mg BID [facility] Administration Levothyroxine Sodium 25 mcg 08/22/19 09:00 08/25/19 09:56 Synthroid PO 25 mcg DAILY [facility] Administration Melatonin 9 mg 08/21/19 21:00 08/24/19 20:46 Melatonin PO 9 mg HS [facility] Administration Polyethylene Glycol 17 gm 08/23/19 11:20 08/23/19 12:14 Miralax PO 17 gm BIDPRN PRN Administration Constipation Sacubitril/Valsartan 1 tab 08/24/19 21:00 08/25/19 09:57 Entresto 24 Mg-26 Mg Tablet PO 1 tab BID [facility] Administration Tamsulosin HCl 0.4 mg 08/21/19 21:00 08/24/19 20:46 Flomax PO 0.4 mg HS [facility] Administration Zolpidem Tartrate 5 mg 08/21/19 18:58 08/25/19 00:55 Ambien PO 5 mg HS PRN Administration Insomnia - Exam General Appearance: awake alert Eye: anicteric sclera ENT: normocephalic atraumatic, moist mucosa Neck: symmetric, no JVD Heart: irregular Respiratory: no wheezes, no ronchi, normal chest expansion Respiratory - other findings: fair air with transmitted sound. Gastrointestinal: soft, non-tender, non-distended, normal bowel sounds Extremities: no cyanosis, no edema Neurological: cranial nerve grossly intact, no new deficit Psychiatric: A&O x 3 Hosp A/P (1) Acute respiratory failure with hypoxia Code(s): J96.01 - ACUTE RESPIRATORY FAILURE WITH HYPOXIA Status: Acute (2) Acute on chronic systolic (congestive) heart failure Code(s): I50.23 - ACUTE ON CHRONIC SYSTOLIC (CONGESTIVE) HEART FAILURE Status : Acute (3) Community acquired bacterial pneumonia Code(s): J15.9 - UNSPECIFIED BACTERIAL PNEUMONIA Status: Ruled-out (4) Quadriparesis Code(s): G82.50 - QUADRIPLEGIA, UNSPECIFIED Status: Acute (5) Hyponatremia Code(s): E87.1 - HYPO-OSMOLALITY AND HYPONATREMIA Status: Acute (6) Ventricular tachycardia Code(s): I47.2 - VENTRICULAR TACHYCARDIA Status: Acute (7) CAD (coronary artery disease) Code(s): I25.10 - ATHSCL HEART DISEASE OF [place] CORONARY ARTERY W/O ANG PCTRS Status: Chronic Qualifiers: Coronary Disease-Associated Artery/Lesion type: bypass graft [place] vs. transplanted heart: [place] heart Associated angina: without angina Qualified Code(s): I25.810 - Atherosclerosis of coronary artery bypass graft(s) without angina pectoris (8) Chronic anticoagulation Code(s): Z79.01 - VEGETABLE THINNER (CURRENT) USE OF ANTICOAGULANTS Status: Chronic (9) HTN (hypertension) Code(s): I10 - ESSENTIAL (PRIMARY) HYPERTENSION Status: Chronic Qualifiers: Hypertension type: essential hypertension (10) Ischemic cardiomyopathy Code(s): I25.5 - ISCHEMIC CARDIOMYOPATHY Status: Chronic (11) Multiple sclerosis Code(s): G35 - MULTIPLE SCLEROSIS Status: Chronic (12) NSVT (nonsustained ventricular tachycardia) Code(s): I47.2 - VENTRICULAR TACHYCARDIA Status: Chronic (13) Neurogenic bladder Code(s): N31.9 - NEUROMUSCULAR DYSFUNCTION OF [place], UNSPECIFIED Status: Chronic (14) Obesity (BMI 30.0-34.9) Code(s): E66.9 - OBESITY, UNSPECIFIED Status: Chronic (15) PAF (paroxysmal atrial fibrillation) Code(s): I48.0 - PAROXYSMAL ATRIAL FIBRILLATION Status: Chronic (16) SIADH (syndrome of inappropriate ADH production) Status: Acute (17) Constipation Code(s): K59.00 - CONSTIPATION, UNSPECIFIED Status: Acute - Plan DC antibiotics as Procalcitonin and tracheal aspirate cultures are unremarkable. Continue IV lasix but at a lower dose given worsening BUN. Monitor renal function and electrolytes Continue 1200 fluid restriction Continue mucolytics and bronchodilators Continue other supportive care. Wean oxygen as tolerated. Appreciate Pulm and cardiology input
[2019-08-25] MEDS ORDERED: Bisacodyl 10 MG SUPP PR SCH (13:15)
[2019-08-25] MEDS: Melatonin 3 MG TAB PO SCH (21:42)
[2019-08-25] MEDS: Tamsulosin HCl 0.4 MG CAP PO SCH (21:42)
[2019-08-25] MEDS: Atorvastatin Calcium 20 MG TAB PO SCH (21:43)
[2019-08-25] MEDS: Gabapentin 300 MG CAP PO SCH (21:44)
[2019-08-25] MEDS: Finasteride 5 MG TAB PO SCH (21:44)
[2019-08-26] MEDS: Furosemide 20 MG/2 ML VIAL SLOW IVP SCH ×2 (05:48→14:43)
[2019-08-26] MEDS: Albuterol Sulfate 1.25 MG/3 ML NEB NEB SCH ×4 (06:48→19:20)
[2019-08-26 07:10] LABS: Chloride 87 mmol/L (98-107); Potassium 3.5 mmol/L (3.5-5.1); Sodium 131 mmol/L (136-145)
[2019-08-26 07:11] LABS: Glucose 111 mg/dL (83-110)
[2019-08-26 07:15] LABS: Calc. Creatinine Clearance 146 mL/min (70-130); Estimated GFR-MDRD Greater than 90
[2019-08-26 07:16] LABS: BUN (Urea Nitrogen) 13 mg/dL (8.4-25.7)
[2019-08-26 07:22] LABS: Carbon Dioxide 36 mmol/L (23-31)
[2019-08-26] MEDS: Apixaban 5 MG TAB PO SCH ×2 (08:50→20:23)
[2019-08-26] MEDS: Carvedilol 6.25 MG TAB PO SCH ×2 (08:50→20:24)
[2019-08-26] MEDS: Clopidogrel Bisulfate 75 MG TAB PO SCH (08:51)
[2019-08-26] MEDS: guaiFENesin ER 600 MG TAB PO SCH ×2 (08:51→20:24)
[2019-08-26] MEDS: Levothyroxine Sodium 25 MCG TAB PO SCH (08:51)
[2019-08-26] MEDS: Amiodarone 200 MG TAB PO SCH ×2 (08:51→20:24)
[2019-08-26 10:56] LABS: Anion Gap 12 mmol/L (10-20)
--- NOTE | 2019-08-26 16:41 | PDOC.CPN ---
- Subjective Date: 08/26/19 Time: 16:49 Interval history: The pt seen and examined. No overnight events. No cardiac complaints. - Objective Allergies/Adverse Reactions: Allergies Allergy/AdvReac Type Severity Reaction Status Date / Time iodine Allergy Verified 09/13/16 03:27 Visit Medications: Current Medications Acetaminophen (Tylenol) 650 mg PO Q4H PRN PRN Reason: Headache/Fever/Mild Pain (1-3) Albuterol Sulfate (Albuterol Sulfate) 1.25 mg NEB QID-RT [facility] Last Admin: 08/26/19 14:38 Dose: 1.25 mg Albuterol Sulfate (Albuterol Sulfate) 1.25 mg NEB Q2H PRN PRN Reason: SOB &/or Wheezing Amiodarone HCl (Cordarone) 200 mg PO BID [facility] Last Admin: 08/26/19 08:51 Dose: 200 mg Apixaban (Eliquis) 5 mg PO BID [facility] Last Admin: 08/26/19 08:50 Dose: 5 mg Atorvastatin Calcium (Lipitor) 20 mg PO HS [facility] Last Admin: 08/25/19 21:43 Dose: 20 mg Bisacodyl (Dulcolax) 10 mg [place] DAILYPRN PRN PRN Reason: Constipation Carvedilol (Coreg) 12.5 mg PO BID [facility] Last Admin: 08/26/19 08:50 Dose: 12.5 mg Clopidogrel Bisulfate (Plavix) 75 mg PO DAILY [facility] Last Admin: 08/26/19 08:51 Dose: 75 mg Finasteride (Proscar) 5 mg PO HS [facility] Last Admin: 08/25/19 21:44 Dose: 5 mg Furosemide (Lasix) 20 mg SLOW IVP 0600,1400 [facility] Last Admin: 08/26/19 14:43 Dose: 20 mg Gabapentin (Neurontin) 600 mg PO HS [facility] Last Admin: 08/25/19 21:44 Dose: 600 mg Guaifenesin (Mucinex) 600 mg PO BID [facility] Last Admin: 08/26/19 08:51 Dose: 600 mg Levothyroxine Sodium (Synthroid) 25 mcg PO DAILY [facility] Last Admin: 08/26/19 08:51 Dose: 25 mcg Loratadine (Claritin) 10 mg PO DAILYPRN PRN PRN Reason: Allergies Melatonin (Melatonin) 9 mg PO [facility] Last Admin: 08/25/19 21:42 Dose: 9 mg Polyethylene Glycol (Miralax) 17 gm PO BIDPRN PRN PRN Reason: Constipation Last Admin: 08/23/19 12:14 Dose: 17 gm Sacubitril/Valsartan (Entresto 24 Mg-26 Mg Tablet) 1 tab PO BID [facility] Last Admin: 08/26/19 08:50 Dose: 1 tab Senna/Docusate Sodium (Senokot S) 2 tab PO BIDPRN PRN PRN Reason: Constipation Last Admin: 08/25/19 16:39 Dose: 2 tab Tamsulosin HCl (Flomax) 0.4 mg PO HS [facility] Last Admin: 08/25/19 21:42 Dose: 0.4 mg Zolpidem Tartrate (Ambien) 5 mg PO HS PRN PRN Reason: Insomnia Last Admin: 08/25/19 21:45 Dose: 5 mg Vital Signs & Weight: Vital Signs Temp Pulse Resp BP BP BP Pulse Ox 08/26/19 14:54 90 20 92 L 08/26/19 14:38 97.8 F 73 20 102/51 L 91 L 08/26/19 11:34 98.2 F 86 22 H 126/60 97 08/26/19 11:18 110/59 L 116/55 L 08/26/19 10:48 92 20 92 L 08/26/19 10:47 51 L 20 92 L 08/26/19 06:55 98.1 F 81 16 95/55 L 99 08/26/19 06:49 82 20 92 L 08/26/19 06:48 76 20 92 L Admit Weight 247 lb 12.8 oz Weight 245 lb 2 oz - Quality Measures Condition: Atrial Fibrillation/Flutter (hx or current), Coronary Artery Disease , Heart Failure CV meds: Beta Zuleima: Yes, LUIZA/ARB: Yes, Statin: Yes, Anticoagulant: Yes - Physical Exam General: alert & oriented x3 HEENT: mucus membranes moist Neck: supple neck Cardiac: irregularly regular Lungs: clear to auscultation, decreased breath sounds - Labs Result Diagrams: 08/25/19 04:55 08/26/19 06:43 Troponin/CKMB Troponin I Less than 0.010 ng/mL (< 0.028) 08/21/19 03:10 - Telemetry Sinus rhythms and dysrhythmias: other (V paced) - Assessment/Plan Assessment/Plan: 1. Persistent atrial fibrillation - well controlled HR; On Amiodarone 200mg BID since 08/24/2019; on Eliquis 5mg BID and Coreg 2. Acute on Chronic Systolic HF - On BBlocker and Lasix 20mg IV; not on LUIZA/ARB due to hypotensive 3. Ischemic CMY with hx of AICD placement - 4. CAD with hx of CABG and s/p cath with occlued graft to RCA - medical tx only ; on bblocker, Plavix, ASA, and statin 5. HTN - stable 6. Multiple sclerosis - MAR reviewed * Echo on 08/24/2019 with EF 25-30%, mod dilated LA, mild TR. Pt. seen and eval. by me. I agree with the A/P by the SPORTS PHYSICAL THERAPIST.rhys
--- NOTE | 2019-08-26 17:19 | PDOC.HOSPP ---
- Subjective Subjective: Seen and examined. Patient with past medical history of cardiomyopathy, multiple sclerosis who is functionally quadriplegic and bedbound. Patient's congestive heart failure has been improving with maximal medical therapy by cardiology. Ejection fraction 25%. Pacemaker has been interrogated and interpreted as normal. Patient started on interest oh appropriately by cardiology. Patient breathing comfortably. No acute complaints. Patient is interested in rehabilitation placement. - Objective Vital Signs & Weight: Vital Signs (12 hours) Temp Pulse Resp BP BP BP Pulse Ox 08/26/19 14:54 90 20 92 L 08/26/19 14:38 97.8 F 73 20 102/51 L 91 L 08/26/19 11:34 98.2 F 86 22 H 126/60 97 08/26/19 11:18 110/59 L 116/55 L 08/26/19 10:48 92 20 92 L 08/26/19 10:47 51 L 20 92 L 08/26/19 06:55 98.1 F 81 16 95/55 L 99 08/26/19 06:49 82 20 92 L 08/26/19 06:48 76 20 92 L Weight Admit Weight 247 lb 12.8 oz Weight 245 lb 2 oz I&O: 08/25/19 08/26/19 08/27/19 06:59 06:59 06:59 Intake Total 1170 1440 Output Total 2660 1100 Balance -1490 340 Result Diagrams: 08/25/19 04:55 08/26/19 06:43 Radiology Reviewed by me: Yes Hospitalist ROS - Review of Systems All other systems reviewed; all pertinent +/- noted in HPI/Subj - Medication Medications: Active Medications Generic Name Dose Route Start Last Admin Trade Name Freq PRN Reason Stop Dose Admin Albuterol Sulfate 1.25 mg 08/21/19 11:00 08/26/19 14:38 Albuterol Sulfate NEB 1.25 mg QID-RT [facility] Administration Amiodarone HCl 200 mg 08/24/19 21:00 08/26/19 08:51 Cordarone PO 200 mg BID [facility] Administration Apixaban 5 mg 08/21/19 21:00 08/26/19 08:50 Eliquis PO 5 mg BID [facility] Administration Atorvastatin Calcium 20 mg 08/21/19 21:00 08/25/19 21:43 Lipitor PO 20 mg HS [facility] Administration Carvedilol 12.5 mg 08/23/19 21:00 08/26/19 08:50 Coreg PO 12.5 mg BID [facility] Administration Clopidogrel Bisulfate 75 mg 08/22/19 09:00 08/26/19 08:51 Plavix PO 75 mg DAILY [facility] Administration Finasteride 5 mg 08/21/19 21:00 08/25/19 21:44 Proscar PO 5 mg HS [facility] Administration Furosemide 20 mg 08/25/19 06:00 08/26/19 14:43 Lasix SLOW IVP 20 mg 0600,1400 [facility] Administration Gabapentin 600 mg 08/21/19 21:00 08/25/19 21:44 Neurontin PO 600 mg HS [facility] Administration Guaifenesin 600 mg 08/21/19 21:00 08/26/19 08:51 Mucinex PO 600 mg BID [facility] Administration Levothyroxine Sodium 25 mcg 08/22/19 09:00 08/26/19 08:51 Synthroid PO 25 mcg DAILY [facility] Administration Melatonin 9 mg 08/21/19 21:00 08/25/19 21:42 Melatonin PO 9 mg HS [facility] Administration Polyethylene Glycol 17 gm 08/23/19 11:20 08/23/19 12:14 Miralax PO 17 gm BIDPRN PRN Administration Constipation Sacubitril/Valsartan 1 tab 08/24/19 21:00 08/26/19 08:50 Entresto 24 Mg-26 Mg Tablet PO 1 tab BID [facility] Administration Senna/Docusate Sodium 2 tab 08/21/19 09:48 08/25/19 16:39 Senokot S PO 2 tab BIDPRN PRN Administration Constipation Tamsulosin HCl 0.4 mg 08/21/19 21:00 08/25/19 21:42 Flomax PO 0.4 mg HS [facility] Administration Zolpidem Tartrate 5 mg 08/21/19 18:58 08/25/19 21:45 Ambien PO 5 mg HS PRN Administration Insomnia - Exam General Appearance: NAD, awake alert Eye: PERRL ENT: normocephalic atraumatic, moist mucosa Neck: supple, symmetric, no lymphadenopathy Heart: no murmur, no gallops, no rubs, normal peripheral pulses Respiratory: CTAB, no wheezes, no rales, no ronchi Gastrointestinal: soft, non-tender, non-distended, normal bowel sounds, no guarding, no rigidity Extremities: 1+ LE edema Skin: no lesions, no rashes Neurological: cranial nerve grossly intact Neurological - other findings: LE flacid. UE +4/5 Musculoskeletal: generalized weakness Psychiatric: normal affect, A&O x 3 Hosp A/P (1) AICD (automatic cardioverter/defibrillator) present Code(s): Z95.810 - PRESENCE OF AUTOMATIC (IMPLANTABLE) CARDIAC DEFIBRILLATOR Status: Acute (2) Acute on chronic systolic (congestive) heart failure Code(s): I50.23 - ACUTE ON CHRONIC SYSTOLIC (CONGESTIVE) HEART FAILURE Status : Acute (3) Acute respiratory failure with hypoxia Code(s): J96.01 - ACUTE RESPIRATORY FAILURE WITH HYPOXIA Status: Acute (4) Chronic systolic CHF (congestive heart failure) Code(s): I50.22 - CHRONIC SYSTOLIC (CONGESTIVE) HEART FAILURE Status: Acute (5) Persistent atrial fibrillation Code(s): I48.19 - OTHER PERSISTENT ATRIAL FIBRILLATION Status: Acute (6) Quadriparesis Code(s): G82.50 - QUADRIPLEGIA, UNSPECIFIED Status: Acute (7) SIADH (syndrome of inappropriate ADH production) Status: Acute (8) CAD (coronary artery disease) Code(s): I25.10 - ATHSCL HEART DISEASE OF [place] CORONARY ARTERY W/O ANG PCTRS Status: Chronic Qualifiers: Coronary Disease-Associated Artery/Lesion type: bypass graft [place] vs. transplanted heart: [place] heart Associated angina: without angina Qualified Code(s): I25.810 - Atherosclerosis of coronary artery bypass graft(s) without angina pectoris (9) HTN (hypertension) Code(s): I10 - ESSENTIAL (PRIMARY) HYPERTENSION Status: Chronic Qualifiers: Hypertension type: essential hypertension (10) Ischemic cardiomyopathy Code(s): I25.5 - ISCHEMIC CARDIOMYOPATHY Status: Chronic (11) Demand ischemia of myocardium Code(s): I24.8 - OTHER FORMS OF ACUTE ISCHEMIC HEART DISEASE Status: Acute (12) Elevated troponin I level Code(s): R74.8 - ABNORMAL LEVELS OF OTHER SERUM ENZYMES Status: Acute (13) Hyponatremia Code(s): E87.1 - HYPO-OSMOLALITY AND HYPONATREMIA Status: Acute (14) Ventricular tachycardia Code(s): I47.2 - VENTRICULAR TACHYCARDIA Status: Acute (15) Chronic anticoagulation Code(s): Z79.01 - SQL SERVER DEVELOPER (CURRENT) USE OF ANTICOAGULANTS Status: Chronic (16) Multiple sclerosis Code(s): G35 - MULTIPLE SCLEROSIS Status: Chronic (17) NSVT (nonsustained ventricular tachycardia) Code(s): I47.2 - VENTRICULAR TACHYCARDIA Status: Chronic (18) Neurogenic bladder Code(s): N31.9 - NEUROMUSCULAR DYSFUNCTION OF BLAD[place], UNSPECIFIED Status: Chronic (19) Obesity (BMI 30.0-34.9) Code(s): E66.9 - OBESITY, UNSPECIFIED Status: Chronic (20) PAF (paroxysmal atrial fibrillation) Code(s): I48.0 - PAROXYSMAL ATRIAL FIBRILLATION Status: Chronic - Plan Plan: medical unit with telemetry cardiology consultation, recommendations appreciated cardiomyopathy regimen adjusted appropriately by linen controller started on Entresto fluid restrictions diuretics renal function stable blood pressure control blood sugar control replace electrolytes as needed patient profoundly weak and debilitated at baseline and now acutely worse physical therapy /Occupational Therapy evaluation and treatment patient may benefit from a short course of inpatient rehabilitation
[2019-08-26] MEDS: Atorvastatin Calcium 20 MG TAB PO SCH (20:23)
[2019-08-26] MEDS: Gabapentin 300 MG CAP PO SCH (20:24)
[2019-08-26] MEDS: Tamsulosin HCl 0.4 MG CAP PO SCH (20:24)
[2019-08-26] MEDS: Finasteride 5 MG TAB PO SCH (20:25)
[2019-08-26] MEDS: Melatonin 3 MG TAB PO SCH (20:25)
[2019-08-26] MEDS: Zolpidem Tartrate 5 MG TAB PO PRN (20:25)
[2019-08-27 05:30] LABS: BUN (Urea Nitrogen) 12 mg/dL (8.4-25.7); Calc. Creatinine Clearance 117 mL/min (70-130); Estimated GFR-MDRD 83; Glucose 102 mg/dL (83-110)
[2019-08-27 05:41] LABS: Anion Gap 18 mmol/L (10-20); Carbon Dioxide 31 mmol/L (23-31); Chloride 86 mmol/L (98-107); Potassium 3.6 mmol/L (3.5-5.1); Sodium 131 mmol/L (136-145)
[2019-08-27] MEDS: Furosemide 20 MG/2 ML VIAL SLOW IVP SCH ×2 (06:02→14:30)
[2019-08-27] MEDS: Albuterol Sulfate 1.25 MG/3 ML NEB NEB SCH ×4 (07:14→18:45)
[2019-08-27] MEDS: Levothyroxine Sodium 25 MCG TAB PO SCH (08:52)
[2019-08-27] MEDS: Carvedilol 6.25 MG TAB PO SCH ×2 (08:52→21:30)
[2019-08-27] MEDS: Clopidogrel Bisulfate 75 MG TAB PO SCH (08:52)
[2019-08-27] MEDS: guaiFENesin ER 600 MG TAB PO SCH ×2 (08:52→21:30)
[2019-08-27] MEDS: Amiodarone 200 MG TAB PO SCH ×2 (08:52→21:31)
[2019-08-27] MEDS: Apixaban 5 MG TAB PO SCH ×2 (09:49→21:31)
[2019-08-27 13:59] VITALS: BMI 31.4
[2019-08-27] MEDS ORDERED: diphenhydrAMINE 25 MG CAP PO PRN (14:12)
[2019-08-27] MEDS ORDERED: Zolpidem Tartrate 5 MG TAB PO PRN (14:12)
--- NOTE | 2019-08-27 14:17 | PDOC.HOSPP ---
- Subjective Subjective: Seen and examined. Patient clinically stable, breathing comfortably on room air. Patient states that he did not sleep well and requesting higher dose of Ambien. Patient states that overall he thinks he is getting better since arrival. Patient states that he has do not resuscitate and do not intubate paperwork filled out with his at the home. I recommended they bring in the paperwork so that we can have the correct categorization status on file. All questions answered in detail. Patient happy with plan of care. - Objective Vital Signs & Weight: Vital Signs (12 hours) Temp Pulse Resp BP BP Pulse Ox 08/27/19 11:35 97.5 F L 79 16 112/65 99 08/27/19 11:26 87 20 93 L 08/27/19 08:52 113/57 L 08/27/19 08:00 96.5 F L 63 20 113/57 L 92 L 08/27/19 07:14 85 18 95 08/27/19 03:47 98.6 F 79 15 113/51 L 96 Weight Admit Weight 247 lb 12.8 oz Weight 245 lb I&O: 08/26/19 08/27/19 08/28/19 06:59 06:59 06:59 Intake Total 1440 1220 Output Total 1100 1400 Balance 340 -180 Result Diagrams: 08/25/19 04:55 08/27/19 04:51 Radiology Reviewed by me: Yes Hospitalist ROS - Review of Systems All other systems reviewed; all pertinent +/- noted in HPI/Subj - Medication Medications: Active Medications Generic Name Dose Route Start Last Admin Trade Name Freq PRN Reason Stop Dose Admin Albuterol Sulfate 1.25 mg 08/21/19 11:00 08/27/19 11:26 Albuterol Sulfate NEB 1.25 mg QID-RT HAM Administration Amiodarone HCl 200 mg 08/24/19 21:00 08/27/19 08:52 Cordarone PO 200 mg BID HAM Administration Apixaban 5 mg 08/21/19 21:00 08/27/19 09:49 Eliquis PO 5 mg BID HAM Administration Atorvastatin Calcium 20 mg 08/21/19 21:00 08/26/19 20:23 Lipitor PO 20 mg HS HAM Administration Carvedilol 12.5 mg 08/23/19 21:00 08/27/19 08:52 Coreg PO 12.5 mg BID HAM Administration Clopidogrel Bisulfate 75 mg 08/22/19 09:00 08/27/19 08:52 Plavix PO 75 mg DAILY HAM Administration Finasteride 5 mg 08/21/19 21:00 08/26/19 20:25 Proscar PO 5 mg HS HAM Administration Furosemide 20 mg 08/25/19 06:00 08/27/19 06:02 Lasix SLOW IVP 20 mg 0600,1400 HAM Administration Gabapentin 600 mg 08/21/19 21:00 08/26/19 20:24 Neurontin PO 600 mg HS HAM Administration Guaifenesin 600 mg 08/21/19 21:00 08/27/19 08:52 Mucinex PO 600 mg BID HAM Administration Levothyroxine Sodium 25 mcg 08/22/19 09:00 08/27/19 08:52 Synthroid PO 25 mcg DAILY HAM Administration Melatonin 9 mg 08/21/19 21:00 08/26/19 20:25 Melatonin PO 9 mg HS HAM Administration Polyethylene Glycol 17 gm 08/23/19 11:20 08/23/19 12:14 Miralax PO 17 gm BIDPRN PRN Administration Constipation Sacubitril/Valsartan 1 tab 08/24/19 21:00 08/27/19 08:52 Entresto 24 Mg-26 Mg Tablet PO 1 tab BID HAM Administration Senna/Docusate Sodium 2 tab 08/21/19 09:48 08/25/19 16:39 Senokot S PO 2 tab BIDPRN PRN Administration Constipation Tamsulosin HCl 0.4 mg 08/21/19 21:00 08/26/19 20:24 Flomax PO 0.4 mg HS HAM Administration - Exam General Appearance: NAD, awake alert Eye: PERRL ENT: normocephalic atraumatic, moist mucosa Neck: supple, symmetric, no lymphadenopathy Heart: no murmur, no gallops, no rubs Respiratory: CTAB, no wheezes, no rales, no ronchi Gastrointestinal: soft, non-tender, non-distended, no guarding, no rigidity Extremities: 1+ LE edema Skin: no lesions, no rashes Neurological: cranial nerve grossly intact, no new deficit Neurological - other findings: Flacid LE Musculoskeletal: generalized weakness Psychiatric: normal affect, normal behavior, A&O x 3 Hosp A/P (1) AICD (automatic cardioverter/defibrillator) present Code(s): Z95.810 - PRESENCE OF AUTOMATIC (IMPLANTABLE) CARDIAC DEFIBRILLATOR Status: Acute (2) Acute on chronic systolic (congestive) heart failure Code(s): I50.23 - ACUTE ON CHRONIC SYSTOLIC (CONGESTIVE) HEART FAILURE Status : Acute (3) Acute respiratory failure with hypoxia Code(s): J96.01 - ACUTE RESPIRATORY FAILURE WITH HYPOXIA Status: Acute (4) Chronic systolic CHF (congestive heart failure) Code(s): I50.22 - CHRONIC SYSTOLIC (CONGESTIVE) HEART FAILURE Status: Acute (5) Persistent atrial fibrillation Code(s): I48.19 - OTHER PERSISTENT ATRIAL FIBRILLATION Status: Acute (6) Quadriparesis Code(s): G82.50 - QUADRIPLEGIA, UNSPECIFIED Status: Acute (7) SIADH (syndrome of inappropriate ADH production) Status: Acute (8) CAD (coronary artery disease) Code(s): I25.10 - ATHSCL HEART DISEASE OF [place] CORONARY ARTERY W/O ANG PCTRS Status: Chronic Qualifiers: Coronary Disease-Associated Artery/Lesion type: bypass graft [place] vs. transplanted heart: [place] heart Associated angina: without angina Qualified Code(s): I25.810 - Atherosclerosis of coronary artery bypass graft(s) without angina pectoris (9) HTN (hypertension) Code(s): I10 - ESSENTIAL (PRIMARY) HYPERTENSION Status: Chronic Qualifiers: Hypertension type: essential hypertension (10) Ischemic cardiomyopathy Code(s): I25.5 - ISCHEMIC CARDIOMYOPATHY Status: Chronic (11) Demand ischemia of myocardium Code(s): I24.8 - OTHER FORMS OF ACUTE ISCHEMIC HEART DISEASE Status: Acute (12) Elevated troponin I level Code(s): R74.8 - ABNORMAL LEVELS OF OTHER SERUM ENZYMES Status: Acute (13) Hyponatremia Code(s): E87.1 - HYPO-OSMOLALITY AND HYPONATREMIA Status: Acute (14) Ventricular tachycardia Code(s): I47.2 - VENTRICULAR TACHYCARDIA Status: Acute (15) Chronic anticoagulation Code(s): Z79.01 - USP (CURRENT) USE OF ANTICOAGULANTS Status: Chronic (16) Multiple sclerosis Code(s): G35 - MULTIPLE SCLEROSIS Status: Chronic (17) NSVT (nonsustained ventricular tachycardia) Code(s): I47.2 - VENTRICULAR TACHYCARDIA Status: Chronic (18) Neurogenic bladder Code(s): N31.9 - NEUROMUSCULAR DYSFUNCTION OF [place], UNSPECIFIED Status: Chronic (19) Obesity (BMI 30.0-34.9) Code(s): E66.9 - OBESITY, UNSPECIFIED Status: Chronic (20) PAF (paroxysmal atrial fibrillation) Code(s): I48.0 - PAROXYSMAL ATRIAL FIBRILLATION Status: Chronic - Plan Plan: medical unit with telemetry cardiology consultation, recommendations appreciated cardiomyopathy regimen adjusted appropriately by gas plant technician Continue Entresto fluid restrictions diuretics renal function stable blood pressure control blood sugar control replace electrolytes as needed patient profoundly weak and debilitated at baseline and now acutely worse physical therapy /Occupational Therapy evaluation and treatment patient may benefit from a short course of inpatient rehabilitation Disposition: Patient states he is a DNR/ DNI and his has this paperwork at home, recommended them bring in to get his categorization status as he would like it.
[2019-08-27] MEDS ORDERED: Zolpidem Tartrate 5 MG TAB PO SCH (21:00)
[2019-08-27] MEDS: Gabapentin 300 MG CAP PO SCH (21:29)
[2019-08-27] MEDS: Finasteride 5 MG TAB PO SCH (21:30)
[2019-08-27] MEDS: Melatonin 3 MG TAB PO SCH (21:30)
[2019-08-27] MEDS: Tamsulosin HCl 0.4 MG CAP PO SCH (21:31)
[2019-08-27] MEDS: Atorvastatin Calcium 20 MG TAB PO SCH (21:31)
[2019-08-28 05:13] LABS: Anion Gap 14 mmol/L (10-20); BUN (Urea Nitrogen) 13 mg/dL (8.4-25.7); Calc. Creatinine Clearance 121 mL/min (70-130); Calcium 9.2 mg/dL (7.8-10.44); Carbon Dioxide 32 mmol/L (23-31); Chloride 87 mmol/L (98-107); Estimated GFR-MDRD 86; Glucose 102 mg/dL (83-110); Potassium 3.8 mmol/L (3.5-5.1); Sodium 129 mmol/L (136-145)
[2019-08-28] MEDS: Furosemide 20 MG/2 ML VIAL SLOW IVP SCH (05:44)
[2019-08-28] MEDS: Albuterol Sulfate 1.25 MG/3 ML NEB NEB SCH ×5 (07:29→19:22)
[2019-08-28] MEDS: Amiodarone 200 MG TAB PO SCH ×2 (09:21→20:45)
[2019-08-28] MEDS: Carvedilol 6.25 MG TAB PO SCH ×2 (09:22→20:44)
[2019-08-28] MEDS: Clopidogrel Bisulfate 75 MG TAB PO SCH (09:22)
[2019-08-28] MEDS: guaiFENesin ER 600 MG TAB PO SCH ×2 (09:23→20:43)
[2019-08-28] MEDS: Levothyroxine Sodium 25 MCG TAB PO SCH (09:23)
[2019-08-28] MEDS: Apixaban 5 MG TAB PO SCH ×2 (09:23→20:45)
[2019-08-28] MEDS: Furosemide 20 MG TAB PO SCH (14:27)
--- NOTE | 2019-08-28 14:57 | PDOC.HOSPP ---
- Subjective Subjective: Seen and examined. Patient breathing comfortably on room air. Patient states that he slept well with the assistance of medication. Patient again tells me his desires are to be do not resuscitate and do not intubate, he states that he has this advanced directive in the paperwork at home. Patient requesting a [employer] supervisor. All questions answered in detail. Patient happy with plan of care. - Objective Vital Signs & Weight: Vital Signs (12 hours) Temp Pulse Resp BP Pulse Ox 08/28/19 14:28 80 112/58 L 08/28/19 14:06 85 16 95 08/28/19 11:37 97.5 F L 81 16 118/64 94 L 08/28/19 10:35 89 14 99 08/28/19 09:15 97.7 F 87 18 102/52 L 95 08/28/19 07:29 87 14 93 L 08/28/19 03:38 98.0 F 84 18 111/58 L 93 L Weight Admit Weight 247 lb 12.8 oz Weight 244 lb 2 oz I&O: 08/27/19 08/28/19 08/29/19 06:59 06:59 06:59 Intake Total 1220 960 Output Total 1400 1250 Balance -180 -290 Result Diagrams: 08/25/19 04:55 08/28/19 04:03 Radiology Reviewed by me: Yes Hospitalist ROS - Review of Systems All other systems reviewed; all pertinent +/- noted in HPI/Subj - Medication Medications: Active Medications Generic Name Dose Route Start Last Admin Trade Name Freq PRN Reason Stop Dose Admin Albuterol Sulfate 1.25 mg 08/21/19 11:00 08/28/19 14:06 Albuterol Sulfate NEB 1.25 mg QID-RT HAM Administration Amiodarone HCl 200 mg 08/24/19 21:00 08/28/19 09:21 Cordarone PO 200 mg BID HAM Administration Apixaban 5 mg 08/21/19 21:00 08/28/19 09:23 Eliquis PO 5 mg BID HAM Administration Atorvastatin Calcium 20 mg 08/21/19 21:00 08/27/19 21:31 Lipitor PO 20 mg HS HAM Administration Carvedilol 12.5 mg 08/23/19 21:00 08/28/19 09:22 Coreg PO 12.5 mg BID HAM Administration Clopidogrel Bisulfate 75 mg 08/22/19 09:00 08/28/19 09:22 Plavix PO 75 mg DAILY HAM Administration Finasteride 5 mg 08/21/19 21:00 08/27/19 21:30 Proscar PO 5 mg HS HAM Administration Furosemide 20 mg 08/28/19 14:00 08/28/19 14:27 Lasix PO 20 mg 0900,1400 HAM Administration Gabapentin 600 mg 08/21/19 21:00 08/27/19 21:29 Neurontin PO 600 mg HS HAM Administration Guaifenesin 600 mg 08/21/19 21:00 08/28/19 09:23 Mucinex PO 600 mg BID HAM Administration Levothyroxine Sodium 25 mcg 08/22/19 09:00 08/28/19 09:23 Synthroid PO 25 mcg DAILY HAM Administration Melatonin 9 mg 08/21/19 21:00 08/27/19 21:30 Melatonin PO 9 mg HS HAM Administration Polyethylene Glycol 17 gm 08/23/19 11:20 08/23/19 12:14 Miralax PO 17 gm BIDPRN PRN Administration Constipation Sacubitril/Valsartan 1 tab 08/24/19 21:00 08/28/19 09:23 Entresto 24 Mg-26 Mg Tablet PO 1 tab BID HAM Administration Senna/Docusate Sodium 2 tab 08/21/19 09:48 08/25/19 16:39 Senokot S PO 2 tab BIDPRN PRN Administration Constipation Tamsulosin HCl 0.4 mg 08/21/19 21:00 08/27/19 21:31 Flomax PO 0.4 mg HS HAM Administration - Exam General Appearance: NAD, awake alert Eye: PERRL ENT: normocephalic atraumatic, moist mucosa Neck: supple, symmetric, no lymphadenopathy Heart: no murmur, no gallops, no rubs Respiratory: no rales, no ronchi, wheezes (few scattered) Gastrointestinal: soft, non-tender, no guarding, no rigidity Extremities: 1+ LE edema Skin: no lesions, no rashes Neurological: cranial nerve grossly intact, no focal deficits Musculoskeletal: no muscle wasting Psychiatric: normal affect, normal behavior, A&O x 3 Hosp A/P (1) AICD (automatic cardioverter/defibrillator) present Code(s): Z95.810 - PRESENCE OF AUTOMATIC (IMPLANTABLE) CARDIAC DEFIBRILLATOR Status: Acute (2) Acute on chronic systolic (congestive) heart failure Code(s): I50.23 - ACUTE ON CHRONIC SYSTOLIC (CONGESTIVE) HEART FAILURE Status : Acute (3) Acute respiratory failure with hypoxia Code(s): J96.01 - ACUTE RESPIRATORY FAILURE WITH HYPOXIA Status: Acute (4) Chronic systolic CHF (congestive heart failure) Code(s): I50.22 - CHRONIC SYSTOLIC (CONGESTIVE) HEART FAILURE Status: Acute (5) Persistent atrial fibrillation Code(s): I48.19 - OTHER PERSISTENT ATRIAL FIBRILLATION Status: Acute (6) Quadriparesis Code(s): G82.50 - QUADRIPLEGIA, UNSPECIFIED Status: Acute (7) SIADH (syndrome of inappropriate ADH production) Status: Acute (8) CAD (coronary artery disease) Code(s): I25.10 - ATHSCL HEART DISEASE OF [place] CORONARY ARTERY W/O ANG PCTRS Status: Chronic Qualifiers: Coronary Disease-Associated Artery/Lesion type: bypass graft [place] vs. transplanted heart: [place] heart Associated angina: without angina Qualified Code(s): I25.810 - Atherosclerosis of coronary artery bypass graft(s) without angina pectoris (9) HTN (hypertension) Code(s): I10 - ESSENTIAL (PRIMARY) HYPERTENSION Status: Chronic Qualifiers: Hypertension type: essential hypertension (10) Ischemic cardiomyopathy Code(s): I25.5 - ISCHEMIC CARDIOMYOPATHY Status: Chronic (11) Demand ischemia of myocardium Code(s): I24.8 - OTHER FORMS OF ACUTE ISCHEMIC HEART DISEASE Status: Acute (12) Elevated troponin I level Code(s): R74.8 - ABNORMAL LEVELS OF OTHER SERUM ENZYMES Status: Acute (13) Hyponatremia Code(s): E87.1 - HYPO-OSMOLALITY AND HYPONATREMIA Status: Acute (14) Ventricular tachycardia Code(s): I47.2 - VENTRICULAR TACHYCARDIA Status: Acute (15) Chronic anticoagulation Code(s): Z79.01 - PRODUCT DEVELOPMENT DIRECTOR (CURRENT) USE OF ANTICOAGULANTS Status: Chronic (16) Multiple sclerosis Code(s): G35 - MULTIPLE SCLEROSIS Status: Chronic (17) NSVT (nonsustained ventricular tachycardia) Code(s): I47.2 - VENTRICULAR TACHYCARDIA Status: Chronic (18) Neurogenic bladder Code(s): N31.9 - NEUROMUSCULAR DYSFUNCTION OF [place], UNSPECIFIED Status: Chronic (19) Obesity (BMI 30.0-34.9) Code(s): E66.9 - OBESITY, UNSPECIFIED Status: Chronic (20) PAF (paroxysmal atrial fibrillation) Code(s): I48.0 - PAROXYSMAL ATRIAL FIBRILLATION Status: Chronic - Plan Plan: medical unit with telemetry Palliative care consultation, recommendations appreciated Spiritual care consultation, recommendations appreciated cardiology consultation, recommendations appreciated cardiomyopathy regimen adjusted appropriately by plc controls engineer Continue Entresto fluid restrictions diuretics renal function stable blood pressure control blood sugar control replace electrolytes as needed patient profoundly weak and debilitated at baseline and now acutely worse physical therapy /Occupational Therapy evaluation and treatment patient may benefit from a short course of inpatient rehabilitation Disposition: Patient states he is a DNR/ DNI and his has this paperwork at home, recommended them bring in to get his categorization status as he would like it.
[2019-08-28] MEDS: Gabapentin 300 MG CAP PO SCH (20:43)
[2019-08-28] MEDS: Finasteride 5 MG TAB PO SCH (20:43)
[2019-08-28] MEDS: Atorvastatin Calcium 20 MG TAB PO SCH (20:45)
[2019-08-28] MEDS: Melatonin 3 MG TAB PO SCH (20:45)
[2019-08-28] MEDS: Tamsulosin HCl 0.4 MG CAP PO SCH (20:46)
[2019-08-28] MEDS ORDERED: Temazepam 15 MG CAP PO SCH (21:00)
[2019-08-29 04:14] VITALS: TEMP 97.6
[2019-08-29] MEDS: Albuterol Sulfate 1.25 MG/3 ML NEB NEB SCH ×2 (08:13→11:04)
[2019-08-29] MEDS: guaiFENesin ER 600 MG TAB PO SCH (08:50)
[2019-08-29] MEDS: Clopidogrel Bisulfate 75 MG TAB PO SCH (08:50)
[2019-08-29] MEDS: Levothyroxine Sodium 25 MCG TAB PO SCH (08:51)
[2019-08-29] MEDS: Apixaban 5 MG TAB PO SCH (08:51)
[2019-08-29] MEDS: Carvedilol 6.25 MG TAB PO SCH (08:51)
[2019-08-29] MEDS: Furosemide 20 MG TAB PO SCH (08:51)
[2019-08-29] MEDS: Amiodarone 200 MG TAB PO SCH (08:51)
[2019-08-29 11:05] VITALS: BP 101/57
--- NOTE | 2019-08-29 20:02 | DIS ---
DATE OF ADMISSION: 08/21/2019 DATE OF DISCHARGE: 08/29/2019 REASON FOR HOSPITALIZATION: Shortness of breath. SIGNIFICANT FINDINGS: The patient was found to have acute congestive heart failure. PROCEDURES PERFORMED AND TREATMENTS RENDERED: The patient was admitted to the medical unit with telemetry for close management. The patient was seen and evaluated by Pulmonology and Cardiology-please see full consultation notes and progress notes for details. Pulmonology recommending deescalation of antibiotics as the patient did not appear to have a severe pneumonia. This appeared to be more congestive heart failure related. An echocardiogram was performed on 08/23/2019-please see full report for details-the patient with ejection fraction of 25% and some chronic structural abnormalities. Cardiology adjusting the patient's congestive heart failure regimen appropriately. The patient was successfully weaned off oxygen therapy and did have good improvement of his symptoms. The patient confided in me that he was fatigued with the chronic nature of his illness and his advanced multiple sclerosis resulting in him being bed-bound and he has a desire to go home. The patient states that he has a do not resuscitate and do not intubate paperwork in place with his at home and he simply does not want to have any need further aggressive surgeries or procedures. I consulted the palliative care team and the hospice team who spent considerable time with the patient and explained all of the process thoroughly. The patient did sign out of hospital arrest paperwork and stating that he would not want to be resuscitated or intubated even if it meant that he would . The patient elected to go home with home hospice care. The patient was accepted into home hospice on 08/29/2019. CONDITION ON DISCHARGE: Guarded. SPECIFIC INSTRUCTIONS FOR THE PATIENT/FAMILY: 1. The patient is recommended to take all medications as directed by hospice physician. 2. The patient is recommended to have all future medical problems addressed by hospice physician. 3. The patient is recommended to continue to pursue symptomatic therapy relief and avoid heart failure exacerbations. 4. The patient is recommended to follow up with primary care physician and specialists if he desires to. DISCHARGE MEDICATIONS: Please see full discharge medication list for details, though the patient was transitioned to hospice care and medications will be handled by his hospice physician from here on out. HOSPITAL COURSE: Mr. Redman is a very pleasant 74-year-old gentleman who presented to [facility] on 08/21/2019. The patient with shortness of breath. Initially, it was unclear whether he had pneumonia or congestive heart failure exacerbation. The patient was seen and evaluated by specialist including Cardiology and Pulmonology-please see full consultation notes, progress notes, and history and physical for full details. Please see full radiographic report for full details. The patient initially placed on antibiotics, though Pulmonology recommending that this process is likely secondary to congestive heart failure and antibiotics were discontinued by Pulmonology. The patient had an echocardiogram-please see full report for details-this demonstrated a reduced ejection fraction at 25%. The patient was placed on appropriate congestive heart failure medications. The patient confided in me that he was fatigued with medical therapy and he was really wishing to go home. The patient does have advanced multiple sclerosis and functional quadriplegic with bed-bound status at baseline. With the patient's weakened heart, he states that he is not interested in further aggressive surgical therapy and not interested in invasive therapy such as cardiac catheterization or ablation therapy. The patient is not interested in cardioversion therapy. The patient states that he wishes to be changed to a do not resuscitate and do not intubated and he has talked about this with his prior and these have always been his wishes. I consulted the palliative care and hospice team who spent considerable time talking with the patient and discussing all matters. Once the patient had a complete understanding of palliative care and hospice, he elected to sign with hospice on 08/29/2019. The patient was discharged to home hospice care on 08/29/2019. The patient is recommended to take all medications as directed by hospice physician from here on out. The patient may continue to follow up with primary care physician and his specialist with Pulmonology and Cardiology in the outpatient setting if he does desire to; though with goals of care being considered and palliative care/hospice now, he has the option to simply follow up with hospice physician from here on out. The patient is recommended to follow up with hospice physician for all future matters. TIME SPENT: Greater than 39 minutes spent coordinating care and discharge process. Job ID: [id number]
[2019-09-01] MEDS ORDERED: Amiodarone 200 MG TAB PO SCH (09:00)
== END 2019-08-29 14:00 | disposition hospice, home (50) | DRG 291 ==
LOC: ERS 21:29 → ERHOLD 08-21 00:35 → 2NO 08-21 11:40 → OBSVTOIN 08-21 18:59
PROVIDERS: ADMIT Internal Medicine; ATTEND Internal Medicine
DX: I11.0 Hypertensive heart disease with heart failure (principal); G82.50 Quadriplegia, unspecified; J96.01 Acute respiratory failure with hypoxia; I47.2 Ventricular tachycardia; E22.2 Syndrome of inappropriate secretion of antidiuretic hormone; I48.19 Other persistent atrial fibrillation; I24.8 Other forms of acute ischemic heart disease; I50.23 Acute on chronic systolic (congestive) heart failure; G35 Multiple sclerosis; Z66 Do not resuscitate; Z51.5 Encounter for palliative care; I25.10 Atherosclerotic heart disease of native coronary artery without angina pectoris; Z95.1 Presence of aortocoronary bypass graft; E78.5 Hyperlipidemia, unspecified; Z98.890 Other specified postprocedural states; F32.9 Major depressive disorder, single episode, unspecified; Z95.0 Presence of cardiac pacemaker; F41.9 Anxiety disorder, unspecified; I25.2 Old myocardial infarction; Z91.041 Radiographic dye allergy status; Z79.01 Long term (current) use of anticoagulants; I25.5 Ischemic cardiomyopathy; N31.9 Neuromuscular dysfunction of bladder, unspecified; E66.9 Obesity, unspecified; Z68.31 Body mass index [BMI] 31.0-31.9, adult; Z95.810 Presence of automatic (implantable) cardiac defibrillator
CPT/HCPCS: 36415; 71045; 80048; 80053; 80069; 81001; 82040; 83880; 83930; 83935; 84145; 84484; 85007; 85025; 85027; 86140; 87070; 87205; 89220; 93005; 93306; 93798; 94640; 94667; 94668; 96374; 96375; J0692; J1940; J1956; J2405; J3370; J3490; J7050; J7611; J7620